=== PATIENT | male | born 1940 | race Caucasian/White ===

== ENCOUNTER → 2016-09-14 | Outpatient (CLI) | payer OTHER ==
[~2016-09-14] MED LIST: ACET-1311 PO; APR25 PO; ASPI81TA28 PO; BCTROWC EXT; CEPH500C PO; CEPH500C2 PO; CMD75 PO; CYAN3INJ IM; CYNI1000 INJ; FERR1TAB62 PO; FURO-85 PO; FURO40TA3 PO; GLC500 PO; GLYB3TAB3 PO; HYDR-4715 PO; LATA0.009 OPB; LATA0.5S OPB; LOSA100T65 PO; LPT/20 PO; METF-384 PO; METO-452 PO; METO25TA3 PO; NYST100098 TOP; NYST80OI TOP; OXGN; OXYC1CAP5 PO; WARF5TAB7 PO; ZOLP5TAB6 PO; [UNRECOGNIZED DRUG - CODE] PO; [UNRECOGNIZED DRUG - OTHER] PO; [UNRECOGNIZED DRUG - OTHER] TOP
[2016-09-14 16:48] LABS: BASO % 0.2 %; BASO ABS # 0.01 K/uL (0-0.2); COMPLETE YES; EOS % 3.9 %; HEMATOCRIT 36.8 % (42-52); IG% 0.2 %; LYMPH % 25.7 %; LYMPH ABS # 1.11 K/uL (1.2-3.4); MEAN CELL VOLUME 85.8 fL (80-100); MEAN CORPUSCULAR HEMOGLOBIN 27.7 pg (25-34); MEAN CORPUSCULAR HGB CONC 32.3 g/dl (32-36); MEAN PLATELET VOLUME 10.6 fL (7.4-10.4); MONO % 11.1 %; NEUT % 58.9 %; PLATELET COUNT 194 K/uL (130-400); RED BLOOD COUNT 4.29 M/uL (4.7-6.1); WHITE BLOOD COUNT 4.32 K/uL (4.8-10.8)
[2016-09-14 17:53] LABS: AST/SGOT 12 U/L (15-37); BLOOD UREA NITROGEN 27 mg/dl (7-18); BUN/CREATININE RATIO 24.2 (10-20); CALCIUM 9.1 mg/dl (8.5-10.1); CARBON DIOXIDE 28 mmol/L (21-32); CHLORIDE 107 mmol/L (98-107); CHOLESTEROL 100 mg/dl (0-200); GLUCOSE 67 mg/dl (70-99); POTASSIUM 4.4 mmol/L (3.5-5.1); SODIUM 143 mmol/L (136-145)
[2016-09-14 18:04] LABS: ALB/GLOB RATIO 0.8 (0.9-2); ALKALINE PHOSPHATASE 119 U/L (45-117); ALT/SGPT 23 U/L (12-78); CHOLESTEROL/HDL RATIO 2.5; FERRITIN 47.3 ng/ml (8.0-388.0); HDL CHOLESTEROL 40 mg/dl; LDL CHOLESTEROL CALCULATED 50 mg/dl; TOTAL IRON BINDING CAPACITY 270 mcg/dl (250-450); TRIGLYCERIDES 48 mg/dl (0-150); VERY LOW DENSITY LIPOPROT CALC 10 mg/dl
[2016-09-15 06:38] LABS: ESTIMATED AVERAGE GLUCOSE 140 mg/dl; HA1C FLAG Normal (Normal)
== END | disposition home or self-care (01) ==
LOC: C.LABBFT 12:20
PROVIDERS: ATTEND Internal Medicine
DX: E11.29 Type 2 diabetes mellitus with other diabetic kidney complication (principal); D64.9 Anemia, unspecified; I82.409 Acute embolism and thrombosis of unspecified deep veins of unspecified lower extremity

== ENCOUNTER → 2017-01-18 | Outpatient (CLI) | payer OTHER ==
[~2017-01-18] MED LIST changes: -APR25 PO; -FURO40TA3 PO; -METF-384 PO; -OXGN; -OXYC1CAP5 PO; -[UNRECOGNIZED DRUG - OTHER] PO; -[UNRECOGNIZED DRUG - OTHER] TOP
[2017-01-18 12:08] LABS: BASO % 0.4 %; BASO ABS # 0.02 K/uL (0-0.2); COMPLETE YES; EOS % 4.7 %; IG% 0.5 %; LYMPH % 21.8 %; LYMPH ABS # 1.22 K/uL (1.2-3.4); MEAN CELL VOLUME 91.1 fL (80-100); MEAN CORPUSCULAR HEMOGLOBIN 28.4 pg (25-34); MEAN CORPUSCULAR HGB CONC 31.1 g/dl (32-36); MEAN PLATELET VOLUME 10.5 fL (7.4-10.4); MONO % 10.4 %; NEUT % 62.2 %; PLATELET COUNT 187 K/uL (130-400); RED BLOOD COUNT 3.84 M/uL (4.7-6.1); WHITE BLOOD COUNT 5.59 K/uL (4.8-10.8)
[2017-01-18 12:28] LABS: ESTIMATED AVERAGE GLUCOSE 154 mg/dl; HA1C FLAG Normal (Normal)
[2017-01-18 13:40] LABS: BLOOD UREA NITROGEN 43 mg/dl (7-18); GLUCOSE 81 mg/dl (70-99)
[2017-01-18 13:41] LABS: ALT/SGPT 27 U/L (12-78); AST/SGOT 13 U/L (15-37); BUN/CREATININE RATIO 39.1 (10-20); CALCIUM 8.9 mg/dl (8.5-10.1); CARBON DIOXIDE 25 mmol/L (21-32); CHLORIDE 112 mmol/L (98-107); POTASSIUM 4.7 mmol/L (3.5-5.1); SODIUM 144 mmol/L (136-145)
[2017-01-18 13:52] LABS: ALB/GLOB RATIO 0.8 (0.9-2); ALKALINE PHOSPHATASE 95 U/L (45-117); CHOLESTEROL 108 mg/dl (0-200); CHOLESTEROL/HDL RATIO 2.6; HDL CHOLESTEROL 41 mg/dl; LDL CHOLESTEROL CALCULATED 56 mg/dl; PROSTATE SPECIFIC ANTIGEN 0.777 ng/ml (0.000-4.000); TRIGLYCERIDES 55 mg/dl (0-150); VERY LOW DENSITY LIPOPROT CALC 11 mg/dl
== END | disposition home or self-care (01) ==
LOC: C.LABBFT 09:11
PROVIDERS: ATTEND Internal Medicine
DX: E11.29 Type 2 diabetes mellitus with other diabetic kidney complication (principal); Z12.5 Encounter for screening for malignant neoplasm of prostate; I25.10 Atherosclerotic heart disease of native coronary artery without angina pectoris; I82.409 Acute embolism and thrombosis of unspecified deep veins of unspecified lower extremity

== ENCOUNTER 2017-02-24 21:41 | Emergency (ER) | payer OTHER ==
[~2017-02-24] VITALS: Ht 177.8 cm; Wt 145.4 kg
[~2017-02-24 21:41] MED LIST changes: -CEPH500C PO; -CYNI1000 INJ; -LATA0.5S OPB; -METO-452 PO
[2017-02-24 21:49] VITALS: TEMP 36.9; Ht 177.8 cm; Wt 145.4 kg
[2017-02-24] MEDS ORDERED: CEFTRIAXONE SOD INJ 1 GM ADDVIAL IV STA (22:11)
[2017-02-24] MEDS ORDERED: CYNI1000 INJ (22:25)
[2017-02-24] MEDS ORDERED: BCTROWC EXT (22:25)
[2017-02-24] MEDS ORDERED: LATA0.5S OPB (22:25)
[2017-02-24] MEDS ORDERED: METO-452 PO (22:27)
[2017-02-24 22:46] LABS: BASO % 0.2 %; BASO ABS # 0.01 K/uL (0-0.2); COMPLETE YES; HEMATOCRIT 35.4 % (42-52); IG% 0.4 %; LYMPH % 17.6 %; LYMPH ABS # 0.82 K/uL (1.2-3.4); MEAN CELL VOLUME 89.8 fL (80-100); MEAN CORPUSCULAR HEMOGLOBIN 28.9 pg (25-34); MEAN CORPUSCULAR HGB CONC 32.2 g/dl (32-36); MEAN PLATELET VOLUME 9.6 fL (7.4-10.4); MONO % 11.4 %; NEUT % 67.4 %; PLATELET COUNT 194 K/uL (130-400); RED BLOOD COUNT 3.94 M/uL (4.7-6.1); WHITE BLOOD COUNT 4.65 K/uL (4.8-10.8)
[2017-02-24 23:04] LABS: BLOOD UREA NITROGEN 27 mg/dl (7-18); BUN/CREATININE RATIO 27.3 (10-20); CALCIUM 8.8 mg/dl (8.5-10.1); CARBON DIOXIDE 31 mmol/L (21-32); CHLORIDE 106 mmol/L (98-107); GLUCOSE 184 mg/dl (70-99); SODIUM 143 mmol/L (136-145)
[2017-02-24 23:05] LABS: C-REACTIVE PROTEIN < 0.29 mg/dl (0-0.29)
--- NOTE | 2017-02-24 23:11 | EMERGENCY ROOM VISIT NOTE ---
ED Visit Note First contact with patient: 21:59 This Patient was discussed with the physician [employer], Taylor Anand PA-C. The pertinent historical and physical exam findings were confirmed. I agree with the studies ordered and with the interpretations of these studies. I agree with the disposition and care plan.
[2017-02-24] MEDS ORDERED: CEPH500C PO (23:22)
--- NOTE | 2017-02-24 23:23 | EMERGENCY ROOM VISIT NOTE ---
History First contact with patient: 21:59 Chief Complaint: INFECTION Stated Complaint: OOZING CELLULITIS ON LEFT LEG Nursing Triage Summary: Pt reports that today his left lower leg started seeping fluid. Hx of bilateral leg cellulitis that is currently being tx. Legs bandaged by home health aid. Legs unwrapped and left leg noted to be red and swollen with moist bandages. Several open areas to left leg. +4 pedal edema that is "worse than normal". Right leg also red and swollen and pedal edema. Single open area to right leg. History of Present Illness The patient is a 77 year old male who presents to the Emergency Room with complaints of oozing from the left leg. The patient states that he has had cellulitis in both of her legs on and off for several years. He states that the left leg began oozing around 3 PM this afternoon. The patient does state there has been slightly increased swelling for the past few days. He has been applying Bactroban ointment to the open areas. The patient states that his cellulitis is typically treated with Keflex. He denies any pain. He reports swelling in both of the legs which is chronic. He denies chest pain, shortness of breath, fevers, loss of appetite or vomiting. Review of Systems A complete 10 point review of systems was reviewed with the patient with pertinent positives and negatives as per history of present illness. All else were negative. Past Medical/Surgical History Medical Problems: (1) Benign hypertension (2) Bilateral pulmonary embolism (3) Chest pain, rule out acute myocardial infarction (4) Congestive heart failure (5) DIAB PAUL WO COMPL, TYPE II OR UNSPEC TYPE, NOT UNCNTRLD (6) MGUS (monoclonal gammopathy of unknown significance) (7) Morbid obesity Surgical Problems: (1) S/P CABG x 3 Family History FHx: heart disease Social History Smoking Status: Never Smoker Drug Use: none Marital Status: single Housing Status: lives alone Current/Historical Medications Scheduled Aspirin (Aspirin Ec), 81 MG PO DAILY Atorvastatin (Atorvastatin Calcium), 20 MG PO HS Cephalexin Monohydrate (Keflex), 500 MG PO QID Cyanocobalamin (Cyanocobalamin), Unknown Dose INJ MONTHLY Ferrous Sulfate (Ferrous Sulfate), 325 MG PO DAILY Furosemide (Lasix), 20-40 MG PO DAILY Glyburide (Glyburide Micronized), 9 MG PO QAM Glyburide Micronized (Glyburide Micronized), 6 MG PO QPM Hydralazine Hcl (Apresoline), 10 MG PO QID Latanoprost (Xalatan 0.005% Oph Nadia), 1 DROPS OPB HS Losartan Potassium (Cozaar), 100 MG PO DAILY Metformin HCl (Metformin HCl), 1,000 MG PO DAILY Metoprolol Succinate (Toprol Xl), 50 MG PO DAILY Mupirocin (Bactroban 2% Oint), 1 APPLN EXT BID Warfarin Sod (Coumadin), 7.5 MG PO Q2D Warfarin Sod (Jantoven), 5 MG PO Q2D Scheduled PRN Acetaminophen (Tylenol), 650 MG PO Q4 PRN for Pain Nystatin (Topical) (Nystatin), 1 APPLN TOP UD PRN for skin impairment Zolpidem Tartrate (Zolpidem Tartrate), 5 MG PO HS PRN for Sleep Allergies Coded Allergies: Mushroom (Verified Adverse Reaction, Unknown, diarrhea, 02/24/17) Physical Exam Vital Signs Date Time Temp Pulse Resp B/P (MAP) Pulse Ox O2 Delivery O2 Flow Rate FiO2 02/24/17 23:40 55 20 182/67 92 02/24/17 21:49 36.9 60 20 191/73 92 Room Air Physical Exam VITALS: Vitals are noted on the nurse's note and reviewed by myself. Vital signs stable. GENERAL: This is a 77-year-old male, in no acute distress, nondiaphoretic, well- developed well-nourished. HEART: Regular rate and rhythm without murmurs gallops or rubs. LUNGS: Clear to auscultation bilaterally without wheezes, rales or rhonchi. EXTREMITIES: 4+ edema to bilateral lower extremities. There are multiple small blisters on bilateral lower extremities. There are skin changes consistent with peripheral vascular disease bilaterally. There are a few small open areas to the left lower extremity which are oozing a serous fluid. There is mild erythema without warmth, induration or fluctuance. NEURO: Patient was alert and oriented to person place and time. Medical Decision & Procedures Laboratory Results 02/24/17 22:30 Red Blood Count 3.94, Mean Corpuscular Volume 89.8, Mean Corpuscular Hemoglobin 28.9, Mean Corpuscular Hemoglobin Concent 32.2, Mean Platelet Volume 9.6, Neutrophils (%) (Auto) 67.4, Lymphocytes (%) (Auto) 17.6, Monocytes (%) (Auto) 11.4, Eosinophils (%) (Auto) 3.0, Basophils (%) (Auto) 0.2, Neutrophils # (Auto ) 3.13, Lymphocytes # (Auto) 0.82, Monocytes # (Auto) 0.53, Eosinophils # (Auto ) 0.14, Basophils # (Auto) 0.01 02/24/17 22:30 Test 02/24/17 22:30 White Blood Count 4.65 K/uL (4.8-10.8) Red Blood Count 3.94 M/uL (4.7-6.1) Hemoglobin 11.4 g/dL (14.0-18.0) Hematocrit 35.4 % (42-52) Mean Corpuscular Volume 89.8 fL (80-100) Mean Corpuscular Hemoglobin 28.9 pg (25-34) Mean Corpuscular Hemoglobin Concent 32.2 g/dl (32-36) Platelet Count 194 K/uL (130-400) Mean Platelet Volume 9.6 fL (7.4-10.4) Neutrophils (%) (Auto) 67.4 % Lymphocytes (%) (Auto) 17.6 % Monocytes (%) (Auto) 11.4 % Eosinophils (%) (Auto) 3.0 % Basophils (%) (Auto) 0.2 % Neutrophils # (Auto) 3.13 K/uL (1.4-6.5) Lymphocytes # (Auto) 0.82 K/uL (1.2-3.4) Monocytes # (Auto) 0.53 K/uL (0.11-0.59) Eosinophils # (Auto) 0.14 K/uL (0-0.5) Basophils # (Auto) 0.01 K/uL (0-0.2) RDW Standard Deviation 48.3 fL (36.4-46.3) RDW Coefficient of Variation 14.8 % (11.5-14.5) Immature Granulocyte % (Auto) 0.4 % Immature Granulocyte # (Auto) 0.02 K/uL (0.00-0.02) Erythrocyte Sedimentation Rate 34 mm/hr (0-14) Anion Gap 6.0 mmol/L (3-11) Est Creatinine Clear Calc Drug Dose 87.8 ml/min Estimated GFR () 83.2 Estimated GFR (Non- 71.8 BUN/Creatinine Ratio 27.3 (10-20) Calcium Level 8.8 mg/dl (8.5-10.1) C-Reactive Protein < 0.29 mg/dl (0-0.29) Medications Administered Medications (Trade) Dose Ordered Sig/Eliot Route Start Time Stop Time Status Last Admin Dose Admin Ceftriaxone Sodium (Rocephin Inj) 1 gm NOW STAT IV 02/24/17 22:11 02/24/17 22:13 DC 02/24/17 22:39 1 GM Cephalexin Monohydrate (Keflex 500MG Home Pack) 1 homepack NOW ONCE PO 02/24/17 23:30 02/24/17 23:31 DC 02/24/17 23:30 1 HOMEPACK ED Course The patient was evaluated as above. Labs were drawn and IV access was obtained. Patient was medicated with 1 g Rocephin IV. Patient was reevaluated and findings were discussed. Discharge instructions were reviewed with the patient. The patient verbalized understanding of my assessment and treatment plan and was discharged home in good condition. Medical Decision Differential diagnosis includes cellulitis, abscess, DVT, superficial thrombosis , among others. The patient is a 77-year-old male who presents today complaining of oozing cellulitis of the left lower leg. Labs revealed no leukocytosis. CRP was not elevated. The patient may have a mild cellulitis. I feel that most of his symptoms are due to peripheral vascular disease. He will be placed on Keflex. He has a follow-up scheduled with his primary care provider in 3 days. He was urged to return here if his symptoms worsened in the meantime. The patient was independently evaluated by Dr. Angelo, ED attending physician, who agreed with my assessment and treatment plan. Based on the patient's presentation and work up, I feel the patient is stable for outpatient treatment. The patient was educated to return to the emergency department for any worsening of their current condition or new/concerning symptoms. He will follow up with his PCP. Medication reconciliation: I attest that I have personally reviewed the patient 's current medication list. Blood pressure screening: Patient was found to have an elevated blood pressure and was referred to their primary care provider for recheck and further treatment. Impression Primary Impression: Cellulitis of left lower extremity Departure Information Dispostion Home / Self-Care Condition GOOD Prescriptions Cephalexin Monohydrate (Keflex) 500 Mg Cap 500 MG PO QID for 10 Days, #40 CAP Prov: Taylor Anand .GANESH 02/24/17 Referrals Ronald Smith M.D. (PCP) Patient Instructions My [facility] Additional Instructions You were prescribed Keflex to be taken 4 times daily as prescribed. This is an antibiotic. All antibiotics have the potential to cause diarrhea. Stop this medication and contact a medical provider if you were to develop any significant adverse side effects including: wheezing, shortness of breath, passing out, vomiting, or a diffuse rash. Always take antibiotics as directed and COMPLETE the ENTIRE course regardless of the improvement of your symptoms. Keep your follow-up appointment on Monday as scheduled. Your blood pressure was high today. Make sure this is rechecked by your primary care provider. Return to the emergency department sooner for worsening redness, worsening pain , high fevers or any other new/concerning symptoms.
[2017-02-24] MEDS ORDERED: CEPHALEXIN 500MG HOME PACK 1 EA BTL PO ONE (23:30)
[2017-02-24 23:40] VITALS: BP 182/67; PULSE 55; O2SAT 92
== END 2017-02-24 23:40 | disposition home or self-care (01) ==
LOC: C.EDB 21:43
DX: L03.116 Cellulitis of left lower limb (principal); R60.0 Localized edema; I10 Essential (primary) hypertension; I50.9 Heart failure, unspecified; E11.9 Type 2 diabetes mellitus without complications; E66.2 Morbid (severe) obesity with alveolar hypoventilation; D47.2 Monoclonal gammopathy; Z86.711 Personal history of pulmonary embolism; Z95.1 Presence of aortocoronary bypass graft; Z79.82 Long term (current) use of aspirin; Z79.01 Long term (current) use of anticoagulants; Z79.84 Long term (current) use of oral hypoglycemic drugs

== ENCOUNTER → 2017-02-27 | Outpatient (CLI) | payer OTHER ==
[~2017-02-27] MED LIST changes: +CEPH500C PO; -CEPH500C2 PO; -CYAN3INJ IM; +CYNI1000 INJ; -LATA0.009 OPB; +LATA0.5S OPB; +METO-452 PO; -METO25TA3 PO; -NYST100098 TOP
[2017-02-27 17:37] LABS: PROTHROMBIN TIME (PATIENT) 22.3 SECONDS (9.0-12.0)
== END | disposition home or self-care (01) ==
LOC: C.LABBFT 15:31
PROVIDERS: ATTEND Internal Medicine
DX: I82.409 Acute embolism and thrombosis of unspecified deep veins of unspecified lower extremity (principal)

== ENCOUNTER → 2017-06-08 | Outpatient (CLI) | payer OTHER ==
[~2017-06-08] MED LIST changes: -CEPH500C PO; -FERR1TAB62 PO; +FERR325T PO; -METO-452 PO; +METO1TAB66 PO
[2017-06-08 17:23] LABS: BASO % 0.2 %; BASO ABS # 0.01 K/uL (0-0.2); COMPLETE YES; EOS % 2.7 %; HEMATOCRIT 30.1 % (42-52); IG% 0.7 %; LYMPH % 19.6 %; LYMPH ABS # 1.07 K/uL (1.2-3.4); MEAN CELL VOLUME 90.4 fL (80-100); MEAN CORPUSCULAR HEMOGLOBIN 28.5 pg (25-34); MEAN CORPUSCULAR HGB CONC 31.6 g/dl (32-36); MEAN PLATELET VOLUME 9.7 fL (7.4-10.4); MONO % 10.2 %; NEUT % 66.6 %; PLATELET COUNT 229 K/uL (130-400); RED BLOOD COUNT 3.33 M/uL (4.7-6.1); WHITE BLOOD COUNT 5.47 K/uL (4.8-10.8)
[2017-06-08 17:55] LABS: ALT/SGPT 26 U/L (12-78); AST/SGOT 14 U/L (15-37); BLOOD UREA NITROGEN 35 mg/dl (7-18); BUN/CREATININE RATIO 29.3 (10-20); CALCIUM 8.9 mg/dl (8.5-10.1); CARBON DIOXIDE 24 mmol/L (21-32); CHLORIDE 110 mmol/L (98-107); GLUCOSE 122 mg/dl (70-99); POTASSIUM 4.5 mmol/L (3.5-5.1); SODIUM 142 mmol/L (136-145)
[2017-06-08 17:58] LABS: ALB/GLOB RATIO 0.7 (0.9-2); ALKALINE PHOSPHATASE 104 U/L (45-117)
== END | disposition home or self-care (01) ==
LOC: C.LABBFT 13:51
PROVIDERS: ATTEND Internal Medicine
DX: I25.10 Atherosclerotic heart disease of native coronary artery without angina pectoris (principal); E11.29 Type 2 diabetes mellitus with other diabetic kidney complication

== ENCOUNTER → 2017-06-28 | Outpatient (CLI) | payer OTHER ==
[2017-06-28 17:27] LABS: BASO % 0.3 %; BASO ABS # 0.02 K/uL (0-0.2); COMPLETE YES; EOS % 3.4 %; HEMATOCRIT 32.2 % (42-52); IG% 0.5 %; LYMPH % 20.1 %; LYMPH ABS # 1.24 K/uL (1.2-3.4); MEAN CELL VOLUME 91.2 fL (80-100); MEAN CORPUSCULAR HEMOGLOBIN 29.7 pg (25-34); MEAN CORPUSCULAR HGB CONC 32.6 g/dl (32-36); MEAN PLATELET VOLUME 10.4 fL (7.4-10.4); MONO % 8.1 %; NEUT % 67.6 %; PLATELET COUNT 201 K/uL (130-400); RED BLOOD COUNT 3.53 M/uL (4.7-6.1); WHITE BLOOD COUNT 6.17 K/uL (4.8-10.8)
[2017-06-28 17:41] LABS: BLOOD UREA NITROGEN 43 mg/dl (7-18); BUN/CREATININE RATIO 28.2 (10-20); CALCIUM 8.7 mg/dl (8.5-10.1); CARBON DIOXIDE 25 mmol/L (21-32); CHLORIDE 106 mmol/L (98-107); CREATININE 1.52 mg/dl (0.60-1.40); GLUCOSE 263 mg/dl (70-99); POTASSIUM 5.1 mmol/L (3.5-5.1); SODIUM 139 mmol/L (136-145)
== END ==
LOC: C.LABBFT 15:35 → EDSTATUS 16:01
PROVIDERS: ATTEND Internal Medicine
DX: N17.9 Acute kidney failure, unspecified (principal)

== ENCOUNTER 2017-09-20 15:29 | Emergency (ER) | payer OTHER ==
[~2017-09-20] VITALS: Ht 179.1 cm; Wt 145.9 kg
[~2017-09-20 15:29] MED LIST changes: +FERR1TAB62 PO; -FERR325T PO; -LPT/20 PO; +LPT20 PO; +METO-452 PO; -METO1TAB66 PO
[2017-09-20 15:35] VITALS: Ht 179.1 cm; Wt 145.9 kg
--- NOTE | 2017-09-20 16:18 | EMERGENCY ROOM VISIT NOTE ---
History Report prepared by Vish: Lin Whiteside Under the Supervision of: Dr. Eddie Givens M.D. First contact with patient: 16:05 Chief Complaint: ARM PAIN Stated Complaint: ACHE IN LEFT ARM,PT HAS HAD BYPASS SURGERY History of Present Illness The patient is a 77 year old male who presents to the Emergency Room with complaints of intermittent left arm aching beginning this morning. The patient states movement does not worsen or relieve his pain. The patient reports he recently had bypass surgery. He denies any chest pain, fever, cough or congestion. He reports some shortness of breath with walking around which is chronic for him. The patient is on Coumadin for a history of PEs. The patient notes he was hospitalized in [place] 6 months ago for a cellulitis on his leg. The patient goes to [facility] for his chronic lymph edema. Source of History: patient Onset: this morning Position: arm (left) Quality: ache Timing: intermittent Modifying Factors (Worsening): other (none) Associated Symptoms: + SOB, No fevers, No cough, No chest pain Review of Systems See HPI for pertinent positives and negatives. A total of ten systems were reviewed and were otherwise negative. Past Medical & Surgical Medical Problems: (1) Benign hypertension (2) Bilateral pulmonary embolism (3) Chest pain, rule out acute myocardial infarction (4) Congestive heart failure (5) DIAB PAUL WO COMPL, TYPE II OR UNSPEC TYPE, NOT UNCNTRLD (6) MGUS (monoclonal gammopathy of unknown significance) (7) Morbid obesity Surgical Problems: (1) S/P CABG x 3 Family History FHx: heart disease Social History Smoking Status: Never Smoker Drug Use: none Marital Status: single Housing Status: lives alone Current/Historical Medications Scheduled Aspirin (Aspirin Ec), 81 MG PO QPM Atorvastatin (Lipitor), 20 MG PO HS Cyanocobalamin (Cyanocobalamin), Unknown Dose INJ MONTHLY Furosemide (Lasix), 40-80 MG PO DAILY Glyburide (Glyburide Micronized), 9 MG PO QAM Glyburide Micronized (Glyburide Micronized), 6 MG PO QPM Home O2 Therapy (Oxygen), 2 LITERS NA HS Hydralazine Hcl (Apresoline), 25 MG PO QID Latanoprost (Xalatan 0.005% Oph Nadia), 1 DROPS OPB HS Losartan Potassium (Cozaar), 100 MG PO DAILY Metformin Hcl (Glucophage), 1,000 MG PO DAILY Metoprolol Succinate (Toprol Xl), 50 MG PO DAILY Oxycodone Hcl (Oxycodone Hcl), 5-10 MG PO Q6H Warfarin Sod (Jantoven), 5 MG PO QPM [ferex iron supp], 150 MG PO QPM Scheduled PRN Acetaminophen (Tylenol), 650 MG PO Q4 PRN for Pain Nystatin (Topical) (Nystatin), 1 APPLN TOP UD PRN for skin impairment Zolpidem Tartrate (Zolpidem Tartrate), 5 MG PO HS PRN for Sleep [triam aveeno oint], 1 APPL TOP DAILY PRN for DRYNESS Allergies Coded Allergies: Mushroom (Verified Adverse Reaction, Unknown, diarrhea, 09/20/17) Physical Exam Vital Signs Date Time Temp Pulse Resp B/P (MAP) Pulse Ox O2 Delivery O2 Flow Rate FiO2 09/20/17 18:21 36.7 57 18 171/79 95 09/20/17 18:00 57 18 171/79 95 Room Air 09/20/17 17:30 65 23 171/74 95 Room Air 09/20/17 16:24 98 Room Air 09/20/17 16:20 72 09/20/17 15:35 36.7 71 18 231/134 93 Room Air Physical Exam GENERAL: Awake, alert, well-appearing, in no distress HENT: Normocephalic, atraumatic. Oropharynx unremarkable. Dry MM. EYES: Normal conjunctiva. Sclera non-icteric. NECK: Supple. No nuchal rigidity. FROM. No JVD. RESPIRATORY: Clear to auscultation. CARDIAC: Regular rate, normal rhythm. Extremities warm and well perfused. Pulses equal. ABDOMEN: Soft, non-distended. No tenderness to palpation. No rebound or guarding. No masses. RECTAL: Deferred. MUSCULOSKELETAL: Chest examination reveals no tenderness. The back is symmetrical on inspection without obvious abnormality. There is no CVA tenderness to palpation. No joint edema. Full ROM of left upper extremities, no tenderness to palpation. LOWER EXTREMITIES: 2 + lower extremity edema, symmetric on both sides. Calves are equal size bilaterally and non-tender. . No discoloration. NEURO: Normal sensorium. No sensory or motor deficits noted. SKIN: No rash or jaundice noted. Medical Decision & Procedures ER Provider Diagnostic Interpretation: Radiology results as stated below per my review and radiologist interpretation: CHEST ONE VIEW PORTABLE FINDINGS: There are median sternotomy wires and clips from bypass grafting. Exam is compromised by portable technique and body habitus with suboptimal penetration. Moderate enlargement of the cardiac silhouette is noted. There is no evidence for overt pulmonary edema. There is pulmonary vascular congestion. Apparent hazy left lower lung opacity is noted. Artifact is favored. IMPRESSION: Moderate cardiomegaly with pulmonary vascular congestion. No evidence for overt pulmonary edema. Electronically signed by: Randy Staples M.D. Laboratory Results 09/20/17 16:22 Red Blood Count 3.57, Mean Corpuscular Volume 91.3, Mean Corpuscular Hemoglobin 28.6, Mean Corpuscular Hemoglobin Concent 31.3, Mean Platelet Volume 10.0, Neutrophils (%) (Auto) 69.8, Lymphocytes (%) (Auto) 18.2, Monocytes (%) (Auto) 7.5, Eosinophils (%) (Auto) 3.7, Basophils (%) (Auto) 0.4, Neutrophils # (Auto) 3.73, Lymphocytes # (Auto) 0.97, Monocytes # (Auto) 0.40, Eosinophils # (Auto) 0.20, Basophils # (Auto) 0.02 09/20/17 16:22 Test 09/20/17 16:22 White Blood Count 5.34 K/uL (4.8-10.8) Red Blood Count 3.57 M/uL (4.7-6.1) Hemoglobin 10.2 g/dL (14.0-18.0) Hematocrit 32.6 % (42-52) Mean Corpuscular Volume 91.3 fL (80-100) Mean Corpuscular Hemoglobin 28.6 pg (25-34) Mean Corpuscular Hemoglobin Concent 31.3 g/dl (32-36) Platelet Count 155 K/uL (130-400) Mean Platelet Volume 10.0 fL (7.4-10.4) Neutrophils (%) (Auto) 69.8 % Lymphocytes (%) (Auto) 18.2 % Monocytes (%) (Auto) 7.5 % Eosinophils (%) (Auto) 3.7 % Basophils (%) (Auto) 0.4 % Neutrophils # (Auto) 3.73 K/uL (1.4-6.5) Lymphocytes # (Auto) 0.97 K/uL (1.2-3.4) Monocytes # (Auto) 0.40 K/uL (0.11-0.59) Eosinophils # (Auto) 0.20 K/uL (0-0.5) Basophils # (Auto) 0.02 K/uL (0-0.2) RDW Standard Deviation 49.2 fL (36.4-46.3) RDW Coefficient of Variation 14.7 % (11.5-14.5) Immature Granulocyte % (Auto) 0.4 % Immature Granulocyte # (Auto) 0.02 K/uL (0.00-0.02) Prothrombin Time 17.7 SECONDS (9.0-12.0) Prothromb Time International Ratio 1.7 (0.9-1.1) Anion Gap 2.0 mmol/L (3-11) Est Creatinine Clear Calc Drug Dose 73.2 ml/min Estimated GFR () 66.1 Estimated GFR (Non- 57.0 BUN/Creatinine Ratio 27.4 (10-20) Calcium Level 8.8 mg/dl (8.5-10.1) Total Bilirubin 1.2 mg/dl (0.2-1) Direct Bilirubin 0.3 mg/dl (0-0.2) Aspartate Amino Transf (AST/SGOT) 14 U/L (15-37) Alanine Aminotransferase (ALT/SGPT) 25 U/L (12-78) Alkaline Phosphatase 99 U/L (45-117) Troponin I 0.024 ng/ml (0-0.045) Pro-B-Type Natriuretic Peptide 1252 pg/ml (0-1800) Total Protein 7.7 gm/dl (6.4-8.2) Albumin 3.4 gm/dl (3.4-5.0) Lipase 149 U/L (73-393) Laboratory results reviewed by me ECG Indication: other (arm ache) Rate (beats per minute): 135 Rhythm: sinus tachycardia Findings: RBBB, no acute ischemic change, other (poor baseline artifact, normal axis) Comparison ECG Date: 04/19/16 Change: no significant change Change: REPEAT EKG: normal sinus, RBBB, 63 bpm, normal axis, no acute ischemia, similar to prior ED Course 1606: The patient was evaluated in room B10. A complete history and physical exam was performed. 1808: I updated the patient on his test results. He is ready to go home. 7: I reevaluated the patient. Discussed results and discharge instructions: He verbalized understanding and agreement. The patient is ready for discharge. Medical Decision I reviewed the patient's past medical history, medications, and the nursing notes as described above. Differential diagnosis: Etiologies such as cardiac ischemia, aortic dissection, pulmonary embolism, pneumonia, pneumothorax, musculoskeletal, infections, pericarditis, myocarditis , esophageal rupture, gastrointestinal, as well as others were entertained. The patient is a 77-year-old gentleman with a past medical history of CAD status post bypass presents emergency Department with constant left shoulder and arm pain that his been persistent since this morning in the setting of chronic dyspnea on exertion per hpi. Arrival the patient is well-appearing, in no acute distress, afebrile with stable vital signs. EKG unremarkable and Trop negative in the setting of constant sx greater than 6 hours prior to arrival. ACS not likely. Plan for pcp f/u. Findings and plan for follow-up reviewed with patient. Patient agreeable and d/c'd per discharge instructions. Medication Reconcilliation Current Medication List: was personally reviewed by me Blood Pressure Screening Patient's blood pressure: Elevated blood pressure Blood pressure disposition: Elevated BP felt to be situational Impression Primary Impression: Shoulder pain, left Scribe Attestation The scribe's documentation has been prepared under my direction and personally reviewed by me in its entirety. I confirm that the note above accurately reflects all work, treatment, procedures, and medical decision making performed by me. Departure Information Dispostion Home / Self-Care Referrals Ronald Smith M.D. (PCP) Forms HOME CARE DOCUMENTATION FORM, IMPORTANT VISIT INFORMATION Patient Instructions ED Chest Pain Atypical Unkn Cause, ED Shoulder Pain [facility], [facility] Additional Instructions Please follow up with your primary care physician in the next 1-3 days for re- evaluation. The cause of your shoulder/arm pain are unclear at this time but are unlikely to be related to your heart. Otherwise, your exam, EKG, chest xray, and lab results did not show signs of an emergent condition at this time. Acetaminophen for pain as needed. Return to the emergency department for worsening symptoms as described in the accompanying instructions.
[2017-09-20 16:24] VITALS: O2SAT 98
[2017-09-20 16:30] LABS: BASO % 0.4 %; BASO ABS # 0.02 K/uL (0-0.2); EOS % 3.7 %; HEMATOCRIT 32.6 % (42-52); HEMOGLOBIN 10.2 g/dL (14.0-18.0); IG# 0.02 K/uL (0.00-0.02); LYMPH % 18.2 %; LYMPH ABS # 0.97 K/uL (1.2-3.4); MEAN CELL VOLUME 91.3 fL (80-100); MEAN CORPUSCULAR HEMOGLOBIN 28.6 pg (25-34); MEAN CORPUSCULAR HGB CONC 31.3 g/dl (32-36); MONO % 7.5 %; NEUT % 69.8 %; NEUT ABS # 3.73 K/uL (1.4-6.5); PLATELET COUNT 155 K/uL (130-400); RED CELL DISTRIBUTION WIDTH CV 14.7 % (11.5-14.5); RED CELL DISTRIBUTION WIDTH SD 49.2 fL (36.4-46.3); WHITE BLOOD COUNT 5.34 K/uL (4.8-10.8)
[2017-09-20 16:39] LABS: INR 1.7 (0.9-1.1)
[2017-09-20] MEDS ORDERED: FURO40TA3 PO (16:51)
[2017-09-20 16:52] LABS: ALBUMIN 3.4 gm/dl (3.4-5.0); CALCIUM 8.8 mg/dl (8.5-10.1); CREATININE 1.21 mg/dl (0.60-1.40)
--- NOTE | 2017-09-20 16:52 | DIAGNOSTIC IMAGING REPORT ---
CHEST ONE VIEW PORTABLE CLINICAL HISTORY: Chest pain. COMPARISON STUDY: Chest radiograph August 16, 2016. FINDINGS: There are median sternotomy wires and clips from bypass grafting. Exam is compromised by portable technique and body habitus with suboptimal penetration. Moderate enlargement of the cardiac silhouette is noted. There is no evidence for overt pulmonary edema. There is pulmonary vascular congestion. Apparent hazy left lower lung opacity is noted. Artifact is favored. IMPRESSION: Moderate cardiomegaly with pulmonary vascular congestion. No evidence for overt pulmonary edema. Electronically signed by: Randy Staples M.D. 09/20/2017 4:50 PM Dictated Date/Time: 09/20/2017 4:49 PM
[2017-09-20] MEDS ORDERED: APR25 PO (16:54)
[2017-09-20 16:58] LABS: TOTAL PROTEIN 7.7 gm/dl (6.4-8.2)
[2017-09-20] MEDS ORDERED: [UNRECOGNIZED DRUG - OTHER] PO (17:01)
[2017-09-20] MEDS ORDERED: METF-384 PO (17:04)
[2017-09-20] MEDS ORDERED: OXYC1CAP5 PO (17:09)
[2017-09-20] MEDS ORDERED: OXGN (17:10)
[2017-09-20] MEDS ORDERED: [UNRECOGNIZED DRUG - OTHER] TOP (17:14)
[2017-09-20 18:21] VITALS: BP 171/79; PULSE 57; TEMP 36.7; O2SAT 95
== END 2017-09-20 18:15 | disposition home or self-care (01) ==
LOC: C.EDB 15:31
DX: M25.512 Pain in left shoulder (principal); I45.10 Unspecified right bundle-branch block; I10 Essential (primary) hypertension; E11.9 Type 2 diabetes mellitus without complications; I51.9 Heart disease, unspecified; Z86.711 Personal history of pulmonary embolism; Z95.1 Presence of aortocoronary bypass graft; Z79.82 Long term (current) use of aspirin; Z79.84 Long term (current) use of oral hypoglycemic drugs; Z79.899 Other long term (current) drug therapy; Z82.49 Family history of ischemic heart disease and other diseases of the circulatory system; Z91.018 Allergy to other foods

== ENCOUNTER → 2017-11-06 | Outpatient (CLI) | payer OTHER ==
[~2017-11-06] MED LIST changes: +APR25 PO; -BCTROWC EXT; -CMD75 PO; -FERR1TAB62 PO; -FURO-85 PO; +FURO40TA3 PO; -GLC500 PO; -HYDR-4715 PO; +METF-384 PO; +OXGN; +OXYC1CAP5 PO; +[UNRECOGNIZED DRUG - OTHER] PO; +[UNRECOGNIZED DRUG - OTHER] TOP
[2017-11-06 17:42] LABS: BASO % 0.4 %; BASO ABS # 0.02 K/uL (0-0.2); EOS % 5.8 %; EOS ABS # 0.32 K/uL (0-0.5); HEMATOCRIT 34.4 % (42-52); HEMOGLOBIN 11.2 g/dL (14.0-18.0); IG# 0.01 K/uL (0.00-0.02); LYMPH % 17.8 %; LYMPH ABS # 0.98 K/uL (1.2-3.4); MEAN CELL VOLUME 89.1 fL (80-100); MEAN CORPUSCULAR HGB CONC 32.6 g/dl (32-36); MEAN PLATELET VOLUME 10.3 fL (7.4-10.4); MONO % 10.3 %; MONO ABS # 0.57 K/uL (0.11-0.59); NEUT % 65.5 %; NEUT ABS # 3.62 K/uL (1.4-6.5); PLATELET COUNT 166 K/uL (130-400); RED CELL DISTRIBUTION WIDTH CV 14.8 % (11.5-14.5); RED CELL DISTRIBUTION WIDTH SD 48.4 fL (36.4-46.3); WHITE BLOOD COUNT 5.52 K/uL (4.8-10.8)
[2017-11-06 18:07] LABS: CREATININE RANDOM URINE 61.9 mg/dl
[2017-11-06 18:29] LABS: ALBUMIN 3.5 gm/dl (3.4-5.0); ALT/SGPT 21 U/L (12-78); AST/SGOT 12 U/L (15-37); BLOOD UREA NITROGEN 58 mg/dl (7-18); CARBON DIOXIDE 26 mmol/L (21-32); CREATININE 1.36 mg/dl (0.60-1.40); GLUCOSE 213 mg/dl (70-99); POTASSIUM 5.1 mmol/L (3.5-5.1); SODIUM 138 mmol/L (136-145)
[2017-11-06 18:32] LABS: ALKALINE PHOSPHATASE 94 U/L (45-117); CHOLESTEROL 114 mg/dl (0-200); LDL CHOLESTEROL CALCULATED 47 mg/dl; TOTAL PROTEIN 7.9 gm/dl (6.4-8.2)
[2017-11-07 06:45] LABS: HEMOGLOBIN A1C 7.3 % (4.5-5.6)
== END | disposition home or self-care (01) ==
LOC: C.LABBFT 14:12
PROVIDERS: ATTEND Internal Medicine
DX: E11.29 Type 2 diabetes mellitus with other diabetic kidney complication (principal); I25.10 Atherosclerotic heart disease of native coronary artery without angina pectoris

== ENCOUNTER 2017-12-10 09:54 | Emergency (ER) | payer OTHER ==
[~2017-12-10] VITALS: Ht 177.8 cm; Wt 146.6 kg
[2017-12-10 09:56] VITALS: TEMP 36.6; Ht 177.8 cm; Wt 146.6 kg
--- NOTE | 2017-12-10 10:17 | EMERGENCY ROOM VISIT NOTE ---
History Report prepared by Vish: Srinath Roldan Under the Supervision of: Dr. Sancho Hu M.D. First contact with patient: 10:00 Chief Complaint: LEG PAIN,LEG INJURY Stated Complaint: LEG PAIN History of Present Illness The patient is a 77 year old male who presents to the Emergency Room with complaints of constant cellulitis on his right leg beginning 4 days ago. The patient states that he first noticed that his leg was bleeding during physical therapy four days ago for his edema. He notes that his symptoms feel like the "skin has been rubbed off and is burning." He also complains of leg edema but notes that it is chronic. He reports that his leg swelling is about the same as it usually is. He denies any fever, chill, nausea, vomiting, CP, SOB, and headache. The patient states that he has a history of diabetes, cellulitis, MGUS and is on Coumadin for blood clots in his lungs. He notes that his cellulitis is typically on his left leg but has appeared on both legs in the past. He denies having any history of blood clots in his legs. Source of History: patient Onset: 4 days ago Position: leg (right) Quality: burning, other ("skin rubbed off" and bleeding) Timing: constant Associated Symptoms: No fevers, No chills, No headache, No chest pain, No SOB, No nausea, No vomiting Note: The patient also complains of chronic leg edema. Review of Systems See HPI for pertinent positives & negatives. A total of 10 systems reviewed and were otherwise negative. Past Medical & Surgical Medical Problems: (1) Benign hypertension (2) Bilateral pulmonary embolism (3) Chest pain, rule out acute myocardial infarction (4) Congestive heart failure (5) DIAB PAUL WO COMPL, TYPE II OR UNSPEC TYPE, NOT UNCNTRLD (6) Diabetes (7) MGUS (monoclonal gammopathy of unknown significance) (8) Morbid obesity (9) Pulmonary embolism Surgical Problems: (1) S/P CABG x 3 Old medical records were reviewed. Nurse's notes were reviewed and I agree with. Family History FH: heart disease FHx: cancer FHx: heart disease Hypertension Social History Smoking Status: Never Smoker Drug Use: none Marital Status: single Housing Status: lives alone Occupation Status: retired Current/Historical Medications Scheduled Aspirin (Aspirin Ec), 81 MG PO QPM Atorvastatin (Lipitor), 1 TAB PO DAILY Cephalexin Monohydrate (Keflex), 500 MG PO TID Cyanocobalamin (Cyanocobalamin), Unknown Dose INJ MONTHLY Dulaglutide (Trulicity), 1 DOSE INJ WK Furosemide (Lasix), 40-80 MG PO DAILY Glyburide (Glyburide Micronized), 9 MG PO QAM Glyburide Micronized (Glyburide Micronized), 6 MG PO QPM Home O2 Therapy (Oxygen), 2 LITERS NA HS Hydralazine Hcl (Apresoline), 25 MG PO QID Latanoprost (Xalatan 0.005% Oph Nadia), 1 DROPS OPB HS Losartan Potassium (Cozaar), 100 MG PO DAILY Metformin Hcl (Glucophage), 1,000 MG PO DAILY Metoprolol Succinate (Toprol Xl), 1 TAB PO DAILY Oxycodone Hcl (Oxycodone Hcl), 5-10 MG PO Q6H Warfarin Sodium (Warfarin Sodium), 1 TAB PO DAILYUD [ferex iron supp], 150 MG PO QPM Scheduled PRN Acetaminophen (Tylenol), 650 MG PO Q4 PRN for Pain Nystatin (Topical) (Nystatin), 1 APPLN TOP UD PRN for skin impairment Zolpidem Tartrate (Zolpidem Tartrate), 5 MG PO HS PRN for Sleep [triam aveeno oint], 1 APPL TOP DAILY PRN for DRYNESS Allergies Coded Allergies: Mushroom (Verified Adverse Reaction, Unknown, diarrhea, 12/10/17) Physical Exam Vital Signs Date Time Temp Pulse Resp B/P (MAP) Pulse Ox O2 Delivery O2 Flow Rate FiO2 12/10/17 12:08 56 18 173/65 96 Room Air 12/10/17 11:05 57 18 172/81 95 Room Air 12/10/17 09:56 36.6 66 20 205/78 97 Room Air Physical Exam General: Chronically ill appearing but not acutely ill older male in no acute distress. HEENT: Normal cephalic atraumatic. Pupils are equal round and reactive to light. Extraocular movements are intact. Oropharynx is pink with moist mucous membranes. No swelling of the mouth lips or tongue. Neck: Supple with a midline trachea. No meningeal signs or stiffness, no JVD or bruits. No Stridor. Chest: Clear to auscultation bilaterally. No wheezes or rhonchi. No increased work of breathing. Heart: regular rate and rhythm. Abdomen: Soft nontender, nondistended without rebound guarding or rigidity. Extremities: No cyanosis clubbing. No calf tenderness or assymetry. Bilateral lower extremity edema which he says is unchanged, chronic vascular skin changes bilaterally, area of concern in right medial calf has a small skin abrasion, no redness or warmth. Spine/Back. Non tender to palpation. No CVA tenderness Skin: Good turgor without rashes. Neurologic exam: Cranial nerves two through 12 are intact. Motor and sensation are intact and symmetrical throughout. Medical Decision & Procedures ER Provider Diagnostic Interpretation: Radiology results as stated below per my review and radiologist interpretation: SINGLE VIEW CHEST FINDINGS: An AP, portable, upright chest radiograph is compared to study dated 09/20/[address] dated 04/20/2016. The examination is degraded by portable technique, large body habitus, and patient rotation. The patient is status post midline sternotomy. The heart is enlarged and there is atherosclerotic calcification of the thoracic aorta. There is prominence of the central pulmonary vessels. There is chronic elevation of right hemidiaphragm and bibasilar atelectasis. Chronic interstitial thickening is similar to previous. No airspace consolidation or large pleural effusion is identified. No pneumothorax is seen. The skeletal structures are osteopenic. The bony thorax is grossly intact. IMPRESSION: 1. Cardiomegaly with prominence of the central pulmonary vasculature. Correlate clinically for evidence of mild congestive failure. 2. No airspace consolidation or large pleural effusion is identified. Electronically signed by: Toribio Hastings M.D. 12/10/2017 10:40 AM ULTRASOUND RIGHT LOWER EXTREMITY VENOUS FINDINGS: There is no sonographic evidence of deep venous thrombosis identified in the right lower extremity. The common femoral, superficial femoral, and popliteal veins are patent and normally compressible. The greater saphenous vein and the profunda femoris vein at the junction with the common femoral vein are clear. The visualized calf veins are patent. IMPRESSION: There is no sonographic evidence of deep venous thrombosis identified in the right lower extremity. Electronically signed by: Toribio Hastings M.D. 12/10/2017 12:02 PM Laboratory Results 12/10/17 10:50 Red Blood Count 3.70, Mean Corpuscular Volume 87.8, Mean Corpuscular Hemoglobin 28.9, Mean Corpuscular Hemoglobin Concent 32.9, Mean Platelet Volume 8.5, Neutrophils (%) (Auto) 61.5, Lymphocytes (%) (Auto) 21.4, Monocytes (%) (Auto) 11.2, Eosinophils (%) (Auto) 5.1, Basophils (%) (Auto) 0.4, Neutrophils # (Auto ) 3.13, Lymphocytes # (Auto) 1.09, Monocytes # (Auto) 0.57, Eosinophils # (Auto ) 0.26, Basophils # (Auto) 0.02 12/10/17 10:50 Test 12/10/17 10:50 12/10/17 10:57 White Blood Count 5.09 K/uL (4.8-10.8) Red Blood Count 3.70 M/uL (4.7-6.1) Hemoglobin 10.7 g/dL (14.0-18.0) Hematocrit 32.5 % (42-52) Mean Corpuscular Volume 87.8 fL (80-100) Mean Corpuscular Hemoglobin 28.9 pg (25-34) Mean Corpuscular Hemoglobin Concent 32.9 g/dl (32-36) Platelet Count 147 K/uL (130-400) Mean Platelet Volume 8.5 fL (7.4-10.4) Neutrophils (%) (Auto) 61.5 % Lymphocytes (%) (Auto) 21.4 % Monocytes (%) (Auto) 11.2 % Eosinophils (%) (Auto) 5.1 % Basophils (%) (Auto) 0.4 % Neutrophils # (Auto) 3.13 K/uL (1.4-6.5) Lymphocytes # (Auto) 1.09 K/uL (1.2-3.4) Monocytes # (Auto) 0.57 K/uL (0.11-0.59) Eosinophils # (Auto) 0.26 K/uL (0-0.5) Basophils # (Auto) 0.02 K/uL (0-0.2) RDW Standard Deviation 45.1 fL (36.4-46.3) RDW Coefficient of Variation 14.1 % (11.5-14.5) Immature Granulocyte % (Auto) 0.4 % Immature Granulocyte # (Auto) 0.02 K/uL (0.00-0.02) Prothrombin Time 20.7 SECONDS (9.0-12.0) Prothromb Time International Ratio 2.0 (0.9-1.1) Activated Partial Thromboplast Time 32.0 SECONDS (21.0-31.0) Partial Thromboplastin Ratio 1.2 Anion Gap 7.0 mmol/L (3-11) Est Creatinine Clear Calc Drug Dose 80.2 ml/min Estimated GFR () 74.1 Estimated GFR (Non- 64.0 BUN/Creatinine Ratio 33.9 (10-20) Calcium Level 8.9 mg/dl (8.5-10.1) Bedside Troponin I < 0.030 ng/ml (0-0.045) Laboratory studies as stated above per my review. Medications Administered Medications (Trade) Dose Ordered Sig/Eliot Route Start Time Stop Time Status Last Admin Dose Admin Cephalexin Monohydrate (Keflex 500MG Home Pack) 1 homepack NOW ONCE PO 12/10/17 12:30 12/10/17 12:31 DC 12/10/17 12:30 1 HOMEPACK ECG Per My Interpretation Indication: other (lower extremity edema) Rate (beats per minute): 55 Rhythm: sinus bradycardia Findings: RBBB, no acute ischemic change Comparison ECG Date: 09/20/2017 Change: no significant change ED Course 1001: Past medical records reviewed. The patient was evaluated in room B4, and a complete history and physical examination were performed. 1205: I reevaluated and update the patient. He is coming back from US and looks comfortable. 1222: Upon reevaluation, the patient is stable. I discussed the results and treatment plan with him. He verbalized agreement of the treatment plan. The patient was discharged home. Medical Decision Differential diagnoses include: CHF, cellulitis, DVT, anticoagulation use, and electrolyte/metabolic abnormalities. This patient comes in as described above. He has chronic swelling in his legs he was concerned he could begin infection as there is a small skin tear in the right leg. On exam there is a skin tear present but there is no redness or warmth he has no fever or chills he feels that his legs are unchanged and he does wear compression stockings. He has had no increase in swelling or pain he has had no systemic complaints of chest pain shortness of breath or fever or chills or flulike symptoms. IV access established and blood work was obtained he is no white count or fever to suggest infection. He has no significant acute anemia. He is nothing to suggest acute cardiac disease. Chest x-ray was clear and does not show any definite congestive heart failure. Ultrasound of his leg was unremarkable. At this point, I do not think he has a significant cellulitis but he is certainly at risk he has a small skin tear, I will put him on Keflex for the possibility of very early cellulitis and he said he just wanted to nip it in the bud. I put him on Keflex 500 mg 3 times daily. First dose was given here as well as prescription. He was encouraged to apply bacitracin and sterile dressing keep elevated follow-up with his doctor for recheck in 1-2 days and return if: increasing pain, redness or warmth, worsening of symptoms, any new problems or concerns. He is happy to plan and discharged to home. Blood Pressure Screening Patient's blood pressure: Elevated blood pressure Blood pressure disposition: Referred to PCP Impression Primary Impression: Lower extremity edema Additional Impressions: Cellulitis Skin abrasion Scribe Attestation The scribe's documentation has been prepared under my direction and personally reviewed by me in its entirety. I confirm that the note above accurately reflects all work, treatment, procedures, and medical decision making performed by me. Departure Information Dispostion Home / Self-Care Prescriptions Cephalexin Monohydrate (Keflex) 500 Mg Cap 500 MG PO TID for 7 Days, #21 CAP Prov: Sancho Hu M.D. 12/10/17 Referrals Ronald Smith M.D. (PCP) Forms HOME CARE DOCUMENTATION FORM, IMPORTANT VISIT INFORMATION Patient Instructions My [facility] Problem Qualifiers
[2017-12-10] MEDS ORDERED: METO-217 PO (10:31)
[2017-12-10] MEDS ORDERED: DULA1INJ INJ (10:31)
[2017-12-10] MEDS ORDERED: LPT40 PO (10:31)
[2017-12-10] MEDS ORDERED: WARF-246 PO (10:31)
--- NOTE | 2017-12-10 10:42 | DIAGNOSTIC IMAGING REPORT ---
SINGLE VIEW CHEST CLINICAL HISTORY: Atypical chest pain. FINDINGS: An AP, portable, upright chest radiograph is compared to study dated 09/20/[address] dated 04/20/2016. The examination is degraded by portable technique, large body habitus, and patient rotation. The patient is status post midline sternotomy. The heart is enlarged and there is atherosclerotic calcification of the thoracic aorta. There is prominence of the central pulmonary vessels. There is chronic elevation of right hemidiaphragm and bibasilar atelectasis. Chronic interstitial thickening is similar to previous. No airspace consolidation or large pleural effusion is identified. No pneumothorax is seen. The skeletal structures are osteopenic. The bony thorax is grossly intact. IMPRESSION: 1. Cardiomegaly with prominence of the central pulmonary vasculature. Correlate clinically for evidence of mild congestive failure. 2. No airspace consolidation or large pleural effusion is identified. Electronically signed by: Toribio Hastings M.D. 12/10/2017 10:40 AM Dictated Date/Time: 12/10/2017 10:38 AM
[2017-12-10 11:04] LABS: BASO % 0.4 %; BASO ABS # 0.02 K/uL (0-0.2); EOS % 5.1 %; EOS ABS # 0.26 K/uL (0-0.5); HEMATOCRIT 32.5 % (42-52); HEMOGLOBIN 10.7 g/dL (14.0-18.0); IG# 0.02 K/uL (0.00-0.02); LYMPH % 21.4 %; LYMPH ABS # 1.09 K/uL (1.2-3.4); MEAN CELL VOLUME 87.8 fL (80-100); MEAN CORPUSCULAR HEMOGLOBIN 28.9 pg (25-34); MEAN CORPUSCULAR HGB CONC 32.9 g/dl (32-36); MEAN PLATELET VOLUME 8.5 fL (7.4-10.4); MONO % 11.2 %; MONO ABS # 0.57 K/uL (0.11-0.59); NEUT % 61.5 %; NEUT ABS # 3.13 K/uL (1.4-6.5); PLATELET COUNT 147 K/uL (130-400); RED CELL DISTRIBUTION WIDTH CV 14.1 % (11.5-14.5); RED CELL DISTRIBUTION WIDTH SD 45.1 fL (36.4-46.3); WHITE BLOOD COUNT 5.09 K/uL (4.8-10.8)
[2017-12-10 11:41] LABS: CALCIUM 8.9 mg/dl (8.5-10.1); CREATININE 1.1 mg/dl (0.60-1.40); POTASSIUM 4.5 mmol/L (3.5-5.1)
--- NOTE | 2017-12-10 12:04 | DIAGNOSTIC IMAGING REPORT ---
ULTRASOUND RIGHT LOWER EXTREMITY VENOUS CLINICAL HISTORY: Right leg pain. COMPARISON STUDY: Right lower extremity venous ultrasound dated 08/16/2016. TECHNIQUE: Real-time, grayscale, and color Doppler sonography of the deep veins of the right lower extremity was performed from the inguinal crease to the calf. Compression and augmentation were utilized. FINDINGS: There is no sonographic evidence of deep venous thrombosis identified in the right lower extremity. The common femoral, superficial femoral, and popliteal veins are patent and normally compressible. The greater saphenous vein and the profunda femoris vein at the junction with the common femoral vein are clear. The visualized calf veins are patent. IMPRESSION: There is no sonographic evidence of deep venous thrombosis identified in the right lower extremity. Electronically signed by: Toribio Hastings M.D. 12/10/2017 12:02 PM Dictated Date/Time: 12/10/2017 12:02 PM
[2017-12-10 12:08] VITALS: BP 173/65; PULSE 56; O2SAT 96
[2017-12-10] MEDS ORDERED: CEPH500C PO (12:23)
[2017-12-10] MEDS ORDERED: CEPHALEXIN 500MG HOME PACK 1 EA BTL PO ONE (12:30)
== END 2017-12-10 12:46 | disposition home or self-care (01) ==
LOC: C.EDB 09:55
DX: R60.0 Localized edema (principal); L03.115 Cellulitis of right lower limb; S80.811A Abrasion, right lower leg, initial encounter; X58.XXXA Exposure to other specified factors, initial encounter; Y92.9 Unspecified place or not applicable; E11.9 Type 2 diabetes mellitus without complications; D47.2 Monoclonal gammopathy; I11.0 Hypertensive heart disease with heart failure; Z86.711 Personal history of pulmonary embolism; I50.9 Heart failure, unspecified; E66.01 Morbid (severe) obesity due to excess calories; Z95.1 Presence of aortocoronary bypass graft; Z82.49 Family history of ischemic heart disease and other diseases of the circulatory system; Z80.9 Family history of malignant neoplasm, unspecified; Z79.82 Long term (current) use of aspirin; Z79.01 Long term (current) use of anticoagulants; Z79.899 Other long term (current) drug therapy; Z91.018 Allergy to other foods

== ENCOUNTER 2018-01-01 20:44 | Emergency (ER) | payer OTHER ==
[~2018-01-01] VITALS: Ht 177.8 cm; Wt 144.7 kg
[~2018-01-01 20:44] MED LIST changes: +DULA1INJ INJ; -LPT20 PO; +LPT40 PO; +METO-217 PO; -METO-452 PO; +WARF-246 PO; -WARF5TAB7 PO
[2018-01-01 20:54] VITALS: TEMP 37.2; Ht 177.8 cm; Wt 144.7 kg
[2018-01-01] MEDS ORDERED: LEVALBUTEROL 1.25MG/0.5ML NEB INH STA ×2 (21:03→22:30)
--- NOTE | 2018-01-01 21:05 | EMERGENCY ROOM VISIT NOTE ---
History Report prepared by Vish: Robert Dash Under the Supervision of: Dr. Marquis Mc M.D. First contact with patient: 20:56 Chief Complaint: COUGH Stated Complaint: SHORTNESS OF BREATH Nursing Triage Summary: patient complains of cough and congestion for a few days. increasing cough today with white phlegm. patient states "this is more of a preventative thing because I had bypass on my heart 2 years ago and I don't want anything to stress it out." History of Present Illness The patient is a 77 year old male who presents to the Emergency Room with complaints of worsening congestion beginning a few days ago. The patient states he has a history of a bypass two years ago and does not want to stress it too much. He reports he uses oxygen at night and had to use of it to make him breathe better today. The patient notes he was mildly short of breath before the oxygen. He states he took an stone seltzer 4 days ago, and it mildly dried up his congestion. The patient reports he was evaluated for edema recently, and it has gotten slightly better. He denies chest pain and fevers. The patient is currently taking Coumadin. Source of History: patient Onset: a few days ago Quality: other (congestion) Timing: worsening Modifying Factors (Relieving): other (stone seltzer) Associated Symptoms: + SOB (mild; relieved with O2), No fevers, No chest pain Review of Systems See HPI for pertinent positives & negatives. A total of 10 systems reviewed and were otherwise negative. Past Medical & Surgical Medical Problems: (1) Benign hypertension (2) Bilateral pulmonary embolism (3) Chest pain, rule out acute myocardial infarction (4) Congestive heart failure (5) DIAB PAUL WO COMPL, TYPE II OR UNSPEC TYPE, NOT UNCNTRLD (6) Diabetes (7) MGUS (monoclonal gammopathy of unknown significance) (8) Morbid obesity (9) Pulmonary embolism Surgical Problems: (1) S/P CABG x 3 Family History FH: heart disease FHx: cancer FHx: heart disease Hypertension Social History Smoking Status: Never Smoker Drug Use: none Marital Status: single Housing Status: lives alone Occupation Status: retired Current/Historical Medications Scheduled Aspirin (Aspirin Ec), 81 MG PO QPM Atorvastatin (Lipitor), 1 TAB PO DAILY Cyanocobalamin (Cyanocobalamin), Unknown Dose INJ MONTHLY Dulaglutide (Trulicity), 1 DOSE INJ WK Furosemide (Lasix), 40-80 MG PO DAILY Glyburide (Glyburide Micronized), 9 MG PO QAM Glyburide Micronized (Glyburide Micronized), 6 MG PO QPM Home O2 Therapy (Oxygen), 2 LITERS NA HS Hydralazine Hcl (Apresoline), 25 MG PO QID Latanoprost (Xalatan 0.005% Oph Nadia), 1 DROPS OPB HS Losartan Potassium (Cozaar), 100 MG PO DAILY Metformin Hcl (Glucophage), 1,000 MG PO QDD Metoprolol Succinate (Toprol Xl), 1 TAB PO DAILY Oseltamivir Phosphate (Tamiflu), 75 MG PO BID Oxycodone Hcl (Oxycodone Hcl), 5-10 MG PO Q6H Warfarin Sodium (Warfarin Sodium), 1 TAB PO DAILYUD [ferex iron supp], 150 MG PO QPM Scheduled PRN Acetaminophen (Tylenol), 650 MG PO Q4 PRN for Pain Nystatin (Topical) (Nystatin), 1 APPLN TOP UD PRN for skin impairment Zolpidem Tartrate (Zolpidem Tartrate), 5 MG PO HS PRN for Sleep [triam aveeno oint], 1 APPL TOP DAILY PRN for DRYNESS Allergies Coded Allergies: Mushroom (Verified Adverse Reaction, Intermediate, diarrhea, 01/01/18) Physical Exam Vital Signs Date Time Temp Pulse Resp B/P (MAP) Pulse Ox O2 Delivery O2 Flow Rate FiO2 01/01/18 23:21 78 18 137/67 93 Room Air 01/01/18 23:11 77 16 138/67 97 Room Air 01/01/18 22:45 67 17 94 Room Air 01/01/18 22:19 69 18 170/60 93 Room Air 01/01/18 22:01 67 14 93 Room Air 01/01/18 21:15 94 Room Air 01/01/18 20:55 65 01/01/18 20:54 93 Room Air 01/01/18 20:54 37.2 69 19 186/83 93 Room Air Physical Exam GENERAL: Awake, alert, well-appearing, in no acute distress HENT: Normocephalic, atraumatic. Oropharynx unremarkable. EYES: Normal conjunctiva. Sclera non-icteric. NECK: Supple. No nuchal rigidity. FROM. No JVD. RESPIRATORY: Bilateral wheezing. CARDIAC: Regular rate, normal rhythm. Extremities warm and well perfused. Pulses equal. ABDOMEN: Soft, non-distended. No tenderness to palpation. No rebound or guarding. No masses. RECTAL: Deferred. MUSCULOSKELETAL: Chest examination reveals no tenderness. Old surgical scar down the front of his chest. The back is symmetrical on inspection without obvious abnormality. There is no CVA tenderness to palpation. No joint edema. LOWER EXTREMITIES: Calves are equal size bilaterally and non-tender. No edema. No discoloration. NEURO: Normal sensorium. No sensory or motor deficits noted. SKIN: No rash or jaundice noted. Medical Decision & Procedures ER Provider Diagnostic Interpretation: X-ray results as stated below per interpretation by me and the radiologist: CHEST ONE VIEW PORTABLE HISTORY: Short of breath. COMPARISON: Chest 12/10/2017. FINDINGS: The heart remains mildly enlarged. There is mild central pulmonary vascular congestion without overt edema. No new focal lung consolidations to suggest pneumonia. No pleural effusions. No pneumothorax. Poststernotomy changes. IMPRESSION: Cardiomegaly with mild central pulmonary vascular congestion. Electronically signed by: Sean Saeed M.D. 01/01/2018 9:30 PM Dictated Date/Time: 01/01/2018 9:28 PM Laboratory Results 01/01/18 21:30 Red Blood Count 3.83, Mean Corpuscular Volume 89.0, Mean Corpuscular Hemoglobin 30.0, Mean Corpuscular Hemoglobin Concent 33.7, Mean Platelet Volume 9.6, Neutrophils (%) (Auto) 56.2, Lymphocytes (%) (Auto) 19.8, Monocytes (%) (Auto) 20.6, Eosinophils (%) (Auto) 2.6, Basophils (%) (Auto) 0.5, Neutrophils # (Auto ) 2.15, Lymphocytes # (Auto) 0.76, Monocytes # (Auto) 0.79, Eosinophils # (Auto ) 0.10, Basophils # (Auto) 0.02 01/01/18 21:30 Test 01/01/18 21:30 White Blood Count 3.83 K/uL (4.8-10.8) Red Blood Count 3.83 M/uL (4.7-6.1) Hemoglobin 11.5 g/dL (14.0-18.0) Hematocrit 34.1 % (42-52) Mean Corpuscular Volume 89.0 fL (80-100) Mean Corpuscular Hemoglobin 30.0 pg (25-34) Mean Corpuscular Hemoglobin Concent 33.7 g/dl (32-36) Platelet Count 139 K/uL (130-400) Mean Platelet Volume 9.6 fL (7.4-10.4) Neutrophils (%) (Auto) 56.2 % Lymphocytes (%) (Auto) 19.8 % Monocytes (%) (Auto) 20.6 % Eosinophils (%) (Auto) 2.6 % Basophils (%) (Auto) 0.5 % Neutrophils # (Auto) 2.15 K/uL (1.4-6.5) Lymphocytes # (Auto) 0.76 K/uL (1.2-3.4) Monocytes # (Auto) 0.79 K/uL (0.11-0.59) Eosinophils # (Auto) 0.10 K/uL (0-0.5) Basophils # (Auto) 0.02 K/uL (0-0.2) RDW Standard Deviation 46.5 fL (36.4-46.3) RDW Coefficient of Variation 14.3 % (11.5-14.5) Immature Granulocyte % (Auto) 0.3 % Immature Granulocyte # (Auto) 0.01 K/uL (0.00-0.02) Prothrombin Time 18.1 SECONDS (9.0-12.0) Prothromb Time International Ratio 1.7 (0.9-1.1) Urine Color YELLOW Urine Appearance CLEAR (CLEAR) Urine pH 7.5 (4.5-7.5) Urine Specific [place] 1.019 (1.000-1.030) Urine Protein 1+ (NEG) Urine Glucose (UA) NEG (NEG) Urine Ketones NEG (NEG) Urine Occult Blood NEG (NEG) Urine Nitrite NEG (NEG) Urine Bilirubin NEG (NEG) Urine Urobilinogen NEG (NEG) Urine Leukocyte Esterase NEG (NEG) Urine WBC (Auto) 1-5 /hpf (0-5) Urine RBC (Auto) 5-10 /hpf (0-4) Urine Hyaline Casts (Auto) 0 /lpf (0-5) Urine Epithelial Cells (Auto) 10-20 /lpf (0-5) Urine Bacteria (Auto) NEG (NEG) Anion Gap 4.0 mmol/L (3-11) Est Creatinine Clear Calc Drug Dose 81.1 ml/min Estimated GFR () 75.8 Estimated GFR (Non- 65.4 BUN/Creatinine Ratio 34.1 (10-20) Calcium Level 8.6 mg/dl (8.5-10.1) Total Bilirubin 1.1 mg/dl (0.2-1) Aspartate Amino Transf (AST/SGOT) 18 U/L (15-37) Alanine Aminotransferase (ALT/SGPT) 24 U/L (12-78) Alkaline Phosphatase 100 U/L (45-117) Total Creatine Kinase 38 U/L (39-308) Creatine Kinase MB < 0.5 ng/ml (0.5-3.6) Creatine Kinase MB Ratio (0-3.0) Troponin I 0.019 ng/ml (0-0.045) Total Protein 8.0 gm/dl (6.4-8.2) Albumin 3.5 gm/dl (3.4-5.0) Globulin 4.5 gm/dl (2.5-4.0) Albumin/Globulin Ratio 0.8 (0.9-2) Influenza Type A Antigen Neg for Influ A (NEG) Influenza Type B Antigen POS for Influ B (NEG) Labs reviewed by ED physician. Medications Administered Medications (Trade) Dose Ordered Sig/[place]liot Route Start Time Stop Time Status Last Admin Dose Admin Levalbuterol (Xopenex 1.25MG/ 0.5ML Neb) 1.25 mg NOW STAT INH 01/01/18 21:03 01/01/18 21:06 DC 01/01/18 21:59 1.25 MG Acetaminophen (Tylenol Tab) 1,000 mg NOW STAT PO 01/01/18 22:30 01/01/18 22:32 DC 01/01/18 22:40 1,000 MG Levalbuterol (Xopenex Hfa Inhaler) 2 puffs NOW STAT INH 01/01/18 22:30 01/01/18 22:32 DC 01/01/18 23:11 2 PUFFS Levalbuterol (Xopenex 1.25MG/ 0.5ML Neb) 1.25 mg NOW STAT INH 01/01/18 22:30 01/01/18 22:32 DC 01/01/18 22:45 1.25 MG Oseltamivir Phosphate (Tamiflu Cap) 75 mg NOW STAT PO 01/01/18 22:30 01/01/18 22:32 DC 01/01/18 22:41 75 MG ECG Per My Interpretation Indication: SOB/dyspnea Rate (beats per minute): 64 Rhythm: normal sinus Findings: RBBB, other (No ST elevation or depression) ED Course 2100: Past medical records reviewed. The patient was evaluated in room A10. A complete history and physical examination was performed. 2102: Ordered Levalbuterol 1.25mg INH 2229: Ordered Tamiflu Cap 75mg PO, Levalbuterol 1.25mg INH, Levalbuterol 2 puffs INH, Acetaminophen 1000mg PO 2257: Upon reexamination the patient is resting and feeling better. I discussed results and treatment plan with the patient. He verbalizes agreement and understanding. The patient is ready for discharge. Medical Decision Etiologies such as infections, reactive airway disease, pneumonia, pneumothorax , COPD, CHF, cardiac ischemia, pulmonary embolism, musculoskeletal, gastrointestinal, as well as others were entertained. This is a 77-year-old male presents the emergency department complaining of congestion. I will note that the patient is afebrile upon arrival to the emergency department. He has a depression in his white blood cell count that I believe is consistent with influenza and as such he is positive for the flu. Using shared medical decision making with the patient and going over the risks and benefits of Tamiflu, the patient wishes to start the Tamiflu. For this reason he was given Tamiflu as well as Tylenol here in the emergency department. His INR was noted to be 1.7 and I stressed the need for follow-up with the patient's primary care physician. While in the emergency department the patient received Xopenex for his breathing. He felt much better upon reexamination. The patient is going to need a ride home therefore case management was contacted. I do feel he is well enough to be discharged home however I stressed the need to increase his fluids over the next 48 hours and to take Tylenol every 6 hours. Patient will also be placed on Tamiflu. Medication Reconcilliation Current Medication List: was personally reviewed by me Blood Pressure Screening Patient's blood pressure: Elevated blood pressure Blood pressure disposition: Referred to PCP Impression Primary Impression: Influenza B Scribe Attestation The scribe's documentation has been prepared under my direction and personally reviewed by me in its entirety. I confirm that the note above accurately reflects all work, treatment, procedures, and medical decision making performed by me. Departure Information Dispostion Home / Self-Care Prescriptions Oseltamivir Phosphate (Tamiflu) 75 Mg Cap 75 MG PO BID, #10 CAP Prov: Marquis Mc MD 01/01/18 Referrals Ronald Smith M.D. Forms HOME CARE DOCUMENTATION FORM, IMPORTANT VISIT INFORMATION Patient Instructions ED Flu, Flu, My [facility] Additional Instructions Take 1000 mg Tylenol every 6 hours Increase fluids next 48 hours Use inhaler twice every 6 hours You have been examined and treated today on an emergency basis only. This is not a substitute for, or an effort to provide, complete comprehensive medical care. It is impossible to recognize and treat all injuries or illnesses in a single emergency department visit. It is therefore important that you follow up closely with Dr Smith. Call as soon as possible for an appointment. Thank you for your time and consideration. I look forward to speaking with you again soon. Please don't hesitate to call us if you have any questions.
[2018-01-01 21:15] VITALS: O2SAT 94
--- NOTE | 2018-01-01 21:31 | DIAGNOSTIC IMAGING REPORT ---
CHEST ONE VIEW PORTABLE HISTORY: Short of breath. COMPARISON: Chest 12/10/2017. FINDINGS: The heart remains mildly enlarged. There is mild central pulmonary vascular congestion without overt edema. No new focal lung consolidations to suggest pneumonia. No pleural effusions. No pneumothorax. Poststernotomy changes. IMPRESSION: Cardiomegaly with mild central pulmonary vascular congestion. Electronically signed by: Sean Saeed M.D. 01/01/2018 9:30 PM Dictated Date/Time: 01/01/2018 9:28 PM
[2018-01-01 22:01] VITALS: PULSE 67; O2SAT 93
[2018-01-01 22:10] LABS: BASO % 0.5 %; BASO ABS # 0.02 K/uL (0-0.2); EOS % 2.6 %; HEMATOCRIT 34.1 % (42-52); HEMOGLOBIN 11.5 g/dL (14.0-18.0); IG# 0.01 K/uL (0.00-0.02); LYMPH % 19.8 %; LYMPH ABS # 0.76 K/uL (1.2-3.4); MEAN CORPUSCULAR HGB CONC 33.7 g/dl (32-36); MEAN PLATELET VOLUME 9.6 fL (7.4-10.4); MONO % 20.6 %; MONO ABS # 0.79 K/uL (0.11-0.59); NEUT % 56.2 %; NEUT ABS # 2.15 K/uL (1.4-6.5); PLATELET COUNT 139 K/uL (130-400); RED CELL DISTRIBUTION WIDTH CV 14.3 % (11.5-14.5); RED CELL DISTRIBUTION WIDTH SD 46.5 fL (36.4-46.3); WHITE BLOOD COUNT 3.83 K/uL (4.8-10.8)
[2018-01-01 22:19] LABS: INR 1.7 (0.9-1.1)
[2018-01-01 22:24] LABS: INFLUENZA B ANTIGEN POS for Influ B (NEG)
[2018-01-01] MEDS ORDERED: LEValbuterol HFA 15GM INHALER INH STA (22:30)
[2018-01-01] MEDS ORDERED: ACETAMINOPHEN 500 MG TAB PO STA (22:30)
[2018-01-01] MEDS ORDERED: OSELTAMIVIR PHOSPHATE 75 MG CAP PO STA (22:30)
[2018-01-01 22:45] VITALS: PULSE 67; O2SAT 94
[2018-01-01 22:49] LABS: ALBUMIN 3.5 gm/dl (3.4-5.0); ALT/SGPT 24 U/L (12-78); AST/SGOT 18 U/L (15-37); BLOOD UREA NITROGEN 37 mg/dl (7-18); CALCIUM 8.6 mg/dl (8.5-10.1); CARBON DIOXIDE 29 mmol/L (21-32); CREATININE 1.08 mg/dl (0.60-1.40); GLUCOSE 81 mg/dl (70-99); POTASSIUM 4.3 mmol/L (3.5-5.1); SODIUM 141 mmol/L (136-145)
[2018-01-01 22:54] LABS: ALKALINE PHOSPHATASE 100 U/L (45-117); CKMB < 0.5 ng/ml (0.5-3.6)
[2018-01-01] MEDS ORDERED: OSEL75CA23 PO (23:10)
[2018-01-01 23:21] VITALS: BP 137/67; PULSE 78; O2SAT 93
== END 2018-01-01 23:18 | disposition home or self-care (01) ==
LOC: EDBD 20:44 → C.EDA 20:45
DX: J10.1 Influenza due to other identified influenza virus with other respiratory manifestations (principal); I11.0 Hypertensive heart disease with heart failure; E11.9 Type 2 diabetes mellitus without complications; D47.2 Monoclonal gammopathy; I50.9 Heart failure, unspecified; Z86.711 Personal history of pulmonary embolism; Z95.1 Presence of aortocoronary bypass graft; Z91.018 Allergy to other foods; Z82.49 Family history of ischemic heart disease and other diseases of the circulatory system; Z79.01 Long term (current) use of anticoagulants; Z79.82 Long term (current) use of aspirin; Z79.84 Long term (current) use of oral hypoglycemic drugs; Z79.899 Other long term (current) drug therapy

== ENCOUNTER → 2018-04-16 | Outpatient (CLI) | payer OTHER ==
[~2018-04-16] MED LIST changes: +OSEL75CA23 PO
[2018-04-16 18:08] LABS: ALBUMIN 3.2 gm/dl (3.4-5.0); ALKALINE PHOSPHATASE 105 U/L (45-117); ALT/SGPT 20 U/L (12-78); AST/SGOT 12 U/L (15-37); BLOOD UREA NITROGEN 22 mg/dl (7-18); CARBON DIOXIDE 24 mmol/L (21-32); CREATININE 0.92 mg/dl (0.60-1.40); GLUCOSE 84 mg/dl (70-99); POTASSIUM 4.7 mmol/L (3.5-5.1); SODIUM 138 mmol/L (136-145); TOTAL PROTEIN 7.8 gm/dl (6.4-8.2)
[2018-04-17 06:12] LABS: HEMOGLOBIN A1C 6.9 % (4.5-5.6)
== END | disposition home or self-care (01) ==
LOC: C.LABBFT 11:34
PROVIDERS: ATTEND Internal Medicine
DX: I10 Essential (primary) hypertension (principal); E78.5 Hyperlipidemia, unspecified; Z12.5 Encounter for screening for malignant neoplasm of prostate; E66.01 Morbid (severe) obesity due to excess calories; E11.29 Type 2 diabetes mellitus with other diabetic kidney complication; E11.39 Type 2 diabetes mellitus with other diabetic ophthalmic complication

== ENCOUNTER 2018-09-06 18:45 | Inpatient (IN) ==
[2018-09-06 19:29] LABS: Basophils # (auto) 0.02 K/uL (0-0.2); Basophils % (auto) 0.2 %; Eosinophils # (auto) 0.07 K/uL (0-0.5); Eosinophils % (auto) 0.8 %; Hematocrit (blood only) 31.7 % (42-52); Hemoglobin 9.9 g/dL (14.0-18.0); Immature Granulocytes # (auto) 0.07 K/uL (0.00-0.02); Immature Granulocytes % (auto) 0.8 %; Lymphocytes # (auto) 1.11 K/uL (1.2-3.4); Lymphocytes % (auto) 12.7 %; Mean Corpuscular Hgb Conc 31.2 g/dL (32-36); Mean Corpuscular Volume 91.9 fL (80-100); Mean Platelet Volume 9.2 fL (7.4-10.4); Monocytes # (auto) 0.82 K/uL (0.11-0.59); Monocytes % (auto) 9.4 %; Neutrophils # (auto) 6.62 K/uL (1.4-6.5); Neutrophils % (auto) 76.1 %; Platelet Count 225 K/uL (130-400); RDW Standard Deviation 50.6 fL (36.4-46.3); Red Blood Count 3.45 M/uL (4.7-6.1); White Blood Count 8.71 K/uL (4.8-10.8)
[2018-09-06 19:36] LABS: INR 1.1 (0.9-1.1); Prothrombin Time 11.5 Seconds (9.0-12.0)
[2018-09-06 19:51] LABS: BUN Creatinine Ratio 37.2 (10-20); Calcium 9.4 mg/dl (8.5-10.1); Creatinine Clr Calc Pharmacy 50.6 ml/min; Est GFR (African American) 44.4; Est GFR (Non-African American) 38.3
[2018-09-06] MEDS ORDERED: DEXTROSE 50% 50 ML SYRINGE IV STA (19:56)
[2018-09-06] MEDS ORDERED: ALBUTEROL 0.083% NEBU SOLN 3 ML VIAL NEB STA (19:56)
[2018-09-06] MEDS ORDERED: NovoLIN-R INSULIN PER UNIT CHARGE IV STA (19:56)
[2018-09-06] MEDS ORDERED: CALCIUM GLUCONATE 10% 1,000 MG in SODIUM CHLORIDE 0.9% 50 ML IV STA (19:56)
[2018-09-06] MEDS ORDERED: CALCIUM GLUCONATE 10% 10 ML VIAL IV ONE (20:11)
[2018-09-06] MEDS ORDERED: ALBUMIN 25% 50 ML with FUROSEMIDE 40 MG IV STA (20:38)
[2018-09-06] MEDS: HYDROCODONE/ACETAMOPHEN 5/325MG TAB PO PRN (21:37)
--- NOTE | 2018-09-06 22:14 | Emergency Department Note ---
Entered by Donis Mccord acting as a scribe for History of Present Illness General Chief complaint: Abnormal Labs/Diagnostic Testing Stated complaint: high potassium level Source: patient Limitations: no limitations History of Present Illness Provider complaint: Abnormal outpatient labs Onset (ago): hour(s) (7 hours) Severity: moderate (potassium of 6.2 and creatinine of 1.89) Pain Consistency: + other (abnormal labs draw today) Quality: + other (abnormal potassium and creatinine ) Associated symptoms: + denies other symptoms Treatments prior to arrival: none The patient is a 78 year old male who presents to the Emergency Room after referral from his primary care office for abnormal laboratory findings. The patient states that he had outpatient labs drawn today as part of a routine check-up. He was referred to the emergency department and was told that his potassium was elevated. The patient denies any physical symptoms including palpitations, chest pain, or fevers. He adds that his primary care office instructed him to stop taking his Losartin and Torsemide one week ago, and he has not resumed them to this point. He is unsure why they instructed him to stop taking the medications, but adds that he was told his Ketones were slightly elevated. He is on Coumadin with a history of pulmonary emboli and bypass surgery. He is currently on an antibiotic for a cellulitis of his lower extremity. Home Medications Home Medications Medication Instructions Recorded Confirmed Type acetaminophen 650 mg PO Q4H PRN 07/09/18 09/06/18 History aspirin [Aspirin Low Dose] 81 mg PO DAILY 07/09/18 09/06/18 History atorvastatin 40 mg PO DAILY 07/09/18 09/06/18 History cyanocobalamin (vitamin B-12) 1,000 mcg SUBCUT MONTHLY 07/09/18 09/06/18 History dulaglutide 1 dose SUBCUT WK 07/09/18 09/06/18 History ferrous sulfate [iron] 325 mg PO DAILY 07/09/18 09/06/18 History glyburide micronized 6 mg PO QPM 07/09/18 09/06/18 History glyburide micronized 9 mg PO DAILY 07/09/18 09/06/18 History latanoprost 1 drp OPHTHALMIC (EYE) PM 07/09/18 09/06/18 History losartan 100 mg PO UD 07/09/18 09/06/18 History metformin 1,000 mg PO DAILY 07/09/18 09/06/18 History metoprolol succinate 50 mg PO DAILY 07/09/18 09/06/18 History nystatin 1 applic TOPICAL DAILY PRN 07/09/18 09/06/18 History zolpidem 5 mg PO HS PRN 07/09/18 09/06/18 History brimonidine [Alphagan P] 2 drp OPR DAILY 07/20/18 09/06/18 History bacitracin 1 applic EXT BID #28 gm 08/12/18 09/06/18 Rx hydralazine 50 mg PO QID #0 tab 08/12/18 09/06/18 Rx hydrocodone-acetaminophen [[place]] 1 tab PO Q8 PRN #15 tab 08/12/18 09/06/18 Rx torsemide 20 mg PO QAM #30 tab 08/12/18 09/06/18 Rx levofloxacin 500 mg tablet 500 mg PO DAILY #30 tab 08/23/18 09/06/18 Rx collagenase clostridium 1 applic TOP DAILY 14 Days #30 gm 09/06/18 09/06/18 Rx histolyticum 250 unit/gram topical ointment oxycodone-acetaminophen [Percocet] 0.5 - 1 tab PO UD PRN 09/06/18 09/06/18 History warfarin [Coumadin] 1 mg PO DAILY 09/06/18 09/06/18 History Allergies Allergy/AdvReac Type Severity Reaction Status Date / Time mushroom AdvReac Intermediate diarrhea Verified 09/06/18 14:49 Past Med/Surg History Medical History Lymphedema (Chronic) Cellulitis CHF (congestive heart failure) (Chronic) Diabetes (Chronic) CAD (coronary artery disease) Chronic venous stasis Hypertension Pulmonary embolism Surgical History S/P CABG (coronary artery bypass graft) Family History Other Colon cancer Diabetes Social History marital status: Single Current Living Situation: Alone Feels Safe at Home: Yes Smoking Status: Never smoker Hx Alcohol Use: No Hx Substance Use: No Beliefs That Will Affect Care: None Preferred Language: Japanese Communication Ability: Effective Visual Impairment: Diminished Hearing Ability: Normal Review of Systems See HPI for pertinent positives & negatives. and A total of 10 systems reviewed and were otherwise negative Physical Exam Vital Signs Vital Signs - 24 hr 09/06/18 18:47 09/06/18 20:30 09/06/18 22:01 Temperature 36.7 C Temperature Source Oral Sepsis Recent Fever Within 48 Hours No Sepsis Action Taken by Nursing No Action Required Pulse Rate 73 Pulse Rate [Apical] 77 87 Pulse Rhythm [Apical] Regular Regular Pulse Strength Normal Pulse Strength [Apical] Normal Normal Respiratory Rate 18 22 17 Respiratory Effort / Characteristics Non-Labored Spontaneous Non-Labored Spontaneous Non-Labored Spontaneous Respiratory Depth Normal Normal Normal Respiratory Pattern Regular Regular Blood Pressure 152/75 H Blood Pressure [Right Arm] 170/64 H 138/70 Blood Pressure Mean 100 Blood Pressure Mean [Right Arm] 99 92 Blood Pressure Position Sitting Blood Pressure Position [Right Arm] Sitting Lying Pulse Oximetry 96 97 93 Oxygen Delivery Method Room Air Room Air Room Air Constitutional: Vital signs reviewed. Eyes: Pupils are equal round reactive to light. Conjunctiva are noninjected. ENT: Pharynx is clear without erythema or exudate. Mucous membranes are moist. Neck supple without meningeal signs. Respiratory: Clear to auscultation bilaterally. Breath sounds are equal bilaterally. Cardiovascular: Regular rate and rhythm. No rubs or gallops. GI: Soft, nondistended and nontender. Bowel sounds are present. Musculoskeletal: There is bilateral lower extremity edema. Legs are wrapped bilaterally. Integumentary: No cyanosis. Neurological: The patient is awake and alert. No focal deficits. Psychiatric: Normal affect. Course 185: Past medical records reviewed. The patient was evaluated in room C8, and a complete history and physical examination were performed. 2001: I checked on the patient at this time. I discussed test results. He is currently eating a sandwich. 2023: I reviewed the patient's case with Dr. David DE LA ROSA Hospitalist. He will evaluate the patient for further management. 2052: I checked on the patient at this time. His BSG is 78. Dr. Harvey held D50 and insulin. Consultations Consultation #1: 2023: I reviewed the patient's case with Dr. David DE LA ROSA Hospitalist. He will evaluate the patient for further management. Administered Medications Hydrocodone Bitart/Acetaminophen ([place] 5/325) 1 tab PO Q4H PRN PRN Reason: Moderate Pain Stop: 09/20/18 21:27 Last Admin: 09/06/18 21:37 Dose: 1 tab Discontinued Medications Albuterol (Ventolin 0.083% 2.5mg/3ml) 2.5 mg NEB NOW STA Stop: 09/06/18 19:57 Last Admin: 09/06/18 20:18 Dose: 2.5 mg Calcium Gluconate (Calcium Gluconate 10%) Confirm Administered Dose 1,000 mg IV .STK-MED ONE Stop: 09/06/18 20:12 Last Admin: 09/06/18 20:30 Dose: Not Given Dextrose (Dextrose 50%) 50 ml IV NOW STA Stop: 09/06/18 19:57 Last Admin: 09/06/18 20:29 Dose: Not Given Calcium Gluconate 1,000 mg/ (Sodium Chloride) 60 mls @ 240 mls/hr IV NOW STA Stop: 09/06/18 20:10 Last Infusion: 09/06/18 20:57 Dose: 0 mls/hr Admin: 09/06/18 20:27 Dose: 240 mls/hr Furosemide 40 mg/ Albumin (Human) 54 mls @ 54 mls/hr IV NOW STA Stop: 09/06/18 21:37 Last Admin: 09/06/18 20:55 Dose: 54 mls/hr Insulin Human Regular (Novolin R U-100 Per Unit) 5 units IV NOW STA Stop: 09/06/18 19:57 Last Admin: 09/06/18 20:30 Dose: Not Given . Medical Decision Making Differential Diagnosis Differential Diagnosis includes: JOHNNY, hyperkalemia, hemolysis, dysrhythmia, metabolic derrangement. Medical Records Attestation: I reviewed the patient's medical records. Home Medications Current Medication List: was personally reviewed by me Laboratory Data Attestation: I reviewed the patient's lab results. Result diagrams: 09/06/18 19:19 09/06/18 19:19 Lab Results 09/06/18 09/06/18 09/06/18 Range/Units 19:19 19:19 19:19 WBC 8.71 (4.8-10.8) K/uL RBC 3.45 L (4.7-6.1) M/uL Hgb 9.9 L (14.0-18.0) g/dL Hct 31.7 L (42-52) % MCV 91.9 (80-100) fL MCH 28.7 (25-34) pg MCHC 31.2 L (32-36) g/dL RDW Std Deviation 50.6 H (36.4-46.3) fL RDW Coeff of Bishnu 15.0 H (11.5-14.5) % Plt Count 225 (130-400) K/uL MPV 9.2 (7.4-10.4) fL Immature Gran % (Auto) 0.8 % Neut % (Auto) 76.1 % Lymph % (Auto) 12.7 % [place] % (Auto) 9.4 % Eos % (Auto) 0.8 % Baso % (Auto) 0.2 % Immature Gran # (Auto) 0.07 H (0.00-0.02) K/uL Neut # (Auto) 6.62 H (1.4-6.5) K/uL Lymph # (Auto) 1.11 L (1.2-3.4) K/uL [place] # (Auto) 0.82 H (0.11-0.59) K/uL Eos # (Auto) 0.07 (0-0.5) K/uL Baso # (Auto) 0.02 (0-0.2) K/uL PT 11.5 (9.0-12.0) Seconds INR 1.1 (0.9-1.1) Sodium 140 (136-145) mmol/L Potassium 6.0 H (3.5-5.1) mmol/L Chloride 110 H (98-107) mmol/L Carbon Dioxide 23 (21-32) mmol/L Anion Gap 7.0 (3-11) BUN 62 H (7-18) mg/dl Creatinine 1.67 H (0.6-1.4) mg/dl Est Cr Clr Drug Dosing 50.6 ml/min Est GFR ( Amer) 44.4 Est GFR (Non-Af Amer) 38.3 BUN/Creatinine Ratio 37.2 H (10-20) Glucose 52 L* (70-99) mg/dl POC Glucose (70-99) Calcium 9.4 (8.5-10.1) mg/dl 12/27/18 Range/Units 20:52 WBC (4.8-10.8) K/uL RBC (4.7-6.1) M/uL Hgb (14.0-18.0) g/dL Hct (42-52) % MCV (80-100) fL MCH (25-34) pg MCHC (32-36) g/dL RDW Std Deviation (36.4-46.3) fL RDW Coeff of Bishnu (11.5-14.5) % Plt Count (130-400) K/uL MPV (7.4-10.4) fL Immature Gran % (Auto) % Neut % (Auto) % Lymph % (Auto) % [place] % (Auto) % Eos % (Auto) % Baso % (Auto) % Immature Gran # (Auto) (0.00-0.02) K/uL Neut # (Auto) (1.4-6.5) K/uL Lymph # (Auto) (1.2-3.4) K/uL [place] # (Auto) (0.11-0.59) K/uL Eos # (Auto) (0-0.5) K/uL Baso # (Auto) (0-0.2) K/uL PT (9.0-12.0) Seconds INR (0.9-1.1) Sodium (136-145) mmol/L Potassium (3.5-5.1) mmol/L Chloride (98-107) mmol/L Carbon Dioxide (21-32) mmol/L Anion Gap (3-11) BUN (7-18) mg/dl Creatinine (0.6-1.4) mg/dl Est Cr Clr Drug Dosing ml/min Est GFR ( Amer) Est GFR (Non-Af Amer) BUN/Creatinine Ratio (10-20) Glucose (70-99) mg/dl POC Glucose 78 (70-99) Calcium (8.5-10.1) mg/dl ECG Data Attestation: I personally reviewed and interpreted this ECG as follows: Indication: other (Hyperkalemia) Rate (beats per minute): 74 Rhythm: other (wide complex undetermined rhythm) Findings: + other (QRS is 126) and + peaked T-waves Comparison ECG Date: from (08/08/2018) Change: no significant change Additional Comments: REPEAT EKG SHOWS: Wide complex, QRS is 132, RBBB. no change from original. Blood Pressure Blood Pressure Findings: Elevated blood pressure Blood Pressure Disposition: Referred to patients primary care provider MDM Narrative I did perform a limited focused review of portions of the patient's old chart on the electronic medical record. The patient had a Potassium level drawn today at 1330 which was 6.2. He had a creatinine of 1.89 as well. I did evaluate the patient as noted above. The patient is presenting with an elevated potassium. He has no symptoms. IV access was established. The patient was placed on a continuous registered nurse cardiac. I did order and personally review the patient's 12-lead EKG as described above. He has some widening of the QRS as well as a right bundle branch block on twelve-lead EKG. I did order and review the patient's blood work as noted in the electronic medical record. He does have a potassium is 6. His glucose is 52. He was given food. I did order D50 1 amp IV. I did also order 5 units of insulin IV because of his potassium. He was also given calcium gluconate IV as well as an albuterol nebulizer. His blood work also demonstrated a INR of 1.1 despite him being on Coumadin. I did discuss the test results with the patient. Recheck of his blood sugar was 72. I did repeat another twelve-lead EKG which shows persistent right bundle branch block per my interpretation with a widened QRS. I did recommend hospitalization. I did discuss case with the hospitalist and case technician. I did discuss the test results with the patient. Impression & Plan Hyperkalemia, Chronic kidney disease, Subtherapeutic international normalized ratio (INR), Chronic anemia, Hypoglycemia Critical Care Time I have personally spent 35 minutes of critical care time in the direct management of this patient. This includes bedside care, interpretation of diagnostic studies, and testing, discussion with consultants, patient, and family members, and other required patient management activities. These minutes are in excess of all separately billable procedures. Discharge Plan Visit Data Chief Complaint: Abnormal Labs/Diagnostic Testing Stated Complaint: high potassium level ED Provider: Flaco Barajas Discharge Problem: Hyperkalemia, Chronic kidney disease, Subtherapeutic international normalized ratio (INR), Chronic anemia, Hypoglycemia Patient Disposition: Being Evaluated by Hospitalist Forms Stand Alone Forms: [facility] Prescriptions Prescriptions: No Action levofloxacin 500 mg tablet 500 mg PO DAILY Qty: 30 RF: 1 collagenase clostridium histo. [S[place]yl] 250 unit/gram ointment 1 applic TOP DAILY 14 Days Qty: 30 RF: 2 brimonidine [Alphagan P] 0.1 % drops 2 drp OPR DAILY RF: 0 hydrocodone-acetaminophen [[place]] 5-325 mg Tablet 1 tab PO Q8 PRN (Reason: pain) Qty: 15 RF: 0 torsemide 20 mg Tablet 20 mg PO QAM Qty: 30 RF: 0 bacitracin 500 unit/gram Ointment 1 applic EXT BID Qty: 28 RF: 0 hydralazine 25 mg Tablet 50 mg PO QID Qty: 0 RF: 0 latanoprost 0.005 % Drops 1 drp OPHTHALMIC (EYE) PM RF: 0 atorvastatin 40 mg Tablet 40 mg PO DAILY RF: 0 glyburide micronized 6 mg Tablet 9 mg PO DAILY RF: 0 glyburide micronized 6 mg Tablet 6 mg PO QPM RF: 0 metoprolol succinate 50 mg Tablet Extended Release 24 Hr 50 mg PO DAILY RF: 0 aspirin [Aspirin Low Dose] 81 mg Tablet,Delayed Release (Dr/Ec) 81 mg PO DAILY RF: 0 cyanocobalamin (vitamin B-12) 1,000 mcg/mL Solution 1,000 mcg SUBCUT MONTHLY RF: 0 ferrous sulfate [iron] 325 mg (65 mg iron) Tablet 325 mg PO DAILY RF: 0 metformin 1,000 mg Tablet 1,000 mg PO DAILY RF: 0 nystatin 100,000 unit/gram cream 1 applic Topical DAILY PRN (Reason: BREAKOUTS) RF: 0 zolpidem 5 mg Tablet 5 mg PO HS PRN (Reason: Insomnia) RF: 0 losartan 100 mg Tablet 100 mg PO UD RF: 0 acetaminophen 325 mg Capsule 650 mg PO Q4H PRN (Reason: Pain) RF: 0 dulaglutide 0.75 mg/0.5 mL Pen Injector 1 dose subcut WK RF: 0 oxycodone-acetaminophen [Percocet] 5-325 mg tablet 0.5 - 1 tab PO UD PRN (Reason: Pain) RF: 0 warfarin [Coumadin] 1 mg tablet 1 mg PO DAILY RF: 0 Referrals Referrals: Ronald Smith III, MD [Primary Care Provider] - The scribe's documentation has been prepared under my direction and personally reviewed by me in its entirety. I confirm that the note above accurately reflects all work, treatment, procedures, and medical decision making performed by me.
--- NOTE | 2018-09-06 23:37 | History & Physical Report ---
Date of Service September 06, 2018 Assessment & Plan (1) Hyperkalemia: Potassium was 6.2 and outpatient laboratories, with repeat 6.0 in the ED tonight. We will simultaneously treat elevated potassium and worsening venous insufficiency with combination albumin 25 g with Lasix 40 mg IV tonight, and then twice daily. Follow serial BMP and magnesium levels. Present on Admission?: Yes (2) Chronic kidney disease: Creatinine upon admission 1.67, with a range 1.75-2.29. Likely secondary to volume overload. Follow serial laboratories with diuresis as noted. Present on Admission?: Yes (3) Cellulitis of right lower extremity: Has been on Levaquin 500 mg orally in the outpatient setting per Dr. Mendez from infectious disease. For now, change Levaquin to 500 mg IV daily and vancomycin 1 g IV daily. We will consult wound care and infectious disease. Present on Admission?: Yes (4) CAD (coronary artery disease): CAD/hypertension/CHF-- Continue aspirin 81 mg daily, hydralazine 50 mg p.o. 4 times daily and metoprolol succinate 50 mg p.o. daily. For now hold losartan 100 mg daily and torsemide 20 mg every morning. Placed on albumin 25 g with Lasix 40 mg IV twice daily as noted above. Present on Admission?: Yes (5) Hypertension: As above. Present on Admission?: Yes (6) Iron deficiency anemia: Continue ferrous sulfate supplement. Present on Admission?: Yes (7) Chronic venous insufficiency: Albumin with Lasix IV as noted above. Work on decreasing lower extremity fluid collections to help with healing of venous ulcers. Present on Admission?: Yes (8) Venous stasis ulcer: Change Levaquin p.o. to Levaquin IV as noted. Add vancomycin IV. Consult wound care and infectious disease as noted. Present on Admission?: Yes (9) Hypoglycemia: Hypoglycemia and associated diabetes mellitus-- Hold metformin and dulaglutide. Significantly decreased glyburide twice daily. Placed on Accu-Cheks before meals and at bedtime with NovoLog coverage per scale. Present on Admission?: Yes (10) Congestive heart failure: As noted above. Will resume outpatient dosing of torsemide after improved fluid balance obtained with albumin and Lasix IV. Present on Admission?: Yes (11) Diabetes: As noted above. Present on Admission?: Yes (12) PE (pulmonary embolism): Patient's present dosing of warfarin as 1 mg daily. INR is subtherapeutic. Unclear why this dosing has been used. Will need to be looked into when offices are open in the a.m. Present on Admission?: Yes (13) Venous stasis syndrome: As above. Present on Admission?: Yes History of Present Illness Chief Complaint: The patient presents to the emergency department after being referred from his PCP for abnormal laboratory work performed at a routine office visit earlier in the day prior to arrival. Primary Care Provider: Ronald Smith III, MD The patient is a 78-year-old male who was seen in his PCPs office earlier today for routine office visit, underwent routine laboratories, which were noted to be abnormal later on in the day, and he was notified by his PCPs office to come to the emergency department for assessment. He reports that he did have his losartan and torsemide stopped 1 week ago for unknown reasons. He does note increasing lower extremity edema since that time. He follows with the wound care clinic for a right lower extremity cellulitis, for which he is on Santyl, and for which he is prescribed levofloxacin by infectious disease Dr. Mendez. He does take [place] periodically for lower extremity pain. Allergies Allergy/AdvReac Type Severity Reaction Status Date / Time mushroom AdvReac Intermediate diarrhea Verified 09/06/18 14:49 Home Medications Home Medications Medication Instructions Recorded Confirmed Type acetaminophen 650 mg PO Q4H PRN 07/09/18 09/06/18 History aspirin [Aspirin Low Dose] 81 mg PO DAILY 07/09/18 09/06/18 History atorvastatin 40 mg PO DAILY 07/09/18 09/06/18 History cyanocobalamin (vitamin B-12) 1,000 mcg SUBCUT MONTHLY 07/09/18 09/06/18 History dulaglutide 1 dose SUBCUT WK 07/09/18 09/06/18 History ferrous sulfate [iron] 325 mg PO DAILY 07/09/18 09/06/18 History glyburide micronized 6 mg PO QPM 07/09/18 09/06/18 History glyburide micronized 9 mg PO DAILY 07/09/18 09/06/18 History latanoprost 1 drp OPHTHALMIC (EYE) PM 07/09/18 09/06/18 History losartan 100 mg PO UD 07/09/18 09/06/18 History metformin 1,000 mg PO DAILY 07/09/18 09/06/18 History metoprolol succinate 50 mg PO DAILY 07/09/18 09/06/18 History nystatin 1 applic TOPICAL DAILY PRN 07/09/18 09/06/18 History zolpidem 5 mg PO HS PRN 07/09/18 09/06/18 History brimonidine [Alphagan P] 2 drp OPR DAILY 07/20/18 09/06/18 History bacitracin 1 applic EXT BID #28 gm 08/12/18 09/06/18 Rx hydralazine 50 mg PO QID #0 tab 08/12/18 09/06/18 Rx hydrocodone-acetaminophen [[place]] 1 tab PO Q8 PRN #15 tab 08/12/18 09/06/18 Rx torsemide 20 mg PO QAM #30 tab 08/12/18 09/06/18 Rx levofloxacin 500 mg tablet 500 mg PO DAILY #30 tab 08/23/18 09/06/18 Rx collagenase clostridium 1 applic TOP DAILY 14 Days #30 gm 09/06/18 09/06/18 Rx histolyticum 250 unit/gram topical ointment oxycodone-acetaminophen [Percocet] 0.5 - 1 tab PO UD PRN 09/06/18 09/06/18 History warfarin [Coumadin] 1 mg PO DAILY 09/06/18 09/06/18 History Past Med/Surg History Medical History Lymphedema (Chronic) Cellulitis CHF (congestive heart failure) (Chronic) Diabetes (Chronic) CAD (coronary artery disease) Chronic venous stasis Hypertension Pulmonary embolism Surgical History S/P CABG (coronary artery bypass graft) Family History Other Colon cancer Diabetes Social History marital status: Single Current Living Situation: Alone Other Information That Helps Us Care for You: No Feels Safe at Home: Yes Safety Concerns: Feels Safe At This Time Smoking Status: Never smoker Hx Alcohol Use: No Hx Substance Use: No Beliefs That Will Affect Care: None Preferred Language: Bhutanese Communication Ability: Effective Review of Systems The patient denies chest pain, palpitations, any change in his chronic shortness of breath and dyspnea on exertion, cough, sore throat, fevers, chills, sweats, nausea, vomiting, diarrhea , constipation, abdominal pain, pelvic pain, blood in urine or stool, dysuria, urinary frequency or urgency, lightheadedness , dizziness, headache, memory loss, loss of consciousness, rash, abnormal bruising or bleeding, imbalance, focal or generalized weakness, numbness or tingling in arms, generalized arthralgias or myalgias, back or neck pain, or night sweats. The review of systems is otherwise negative other than for that already noted above, and at least 10 systems have been reviewed. Physical Exam 2 Vital Signs (Past 24 Hours): Last Vital Signs Temp 36.7 C 09/06/18 18:47 Pulse 87 09/06/18 22:01 Resp 17 09/06/18 22:01 BP 138/70 09/06/18 22:01 Pulse Ox 93 09/06/18 22:01 Physical Exam: The patient is awake, alert and oriented 3, normocephalic and atraumatic, lying in bed and in no acute distress. HEENT--PERRL, EOMI, mucous membranes and oropharynx normal. Neck--supple. No JVD. No bruits. Thyroid normal, trachea midline, no adenopathy. Heart--normal S1 and S2. No murmurs, rubs or gallops. Lungs--crackles at the bases to retirement up bilaterally. Abdomen--normal bowel sounds and soft. Nontender. Nondistended. Morbidly obese Extremities--no cyanosis or clubbing. There is bilateral pretibial 2+ pitting edema. There are good distal pulses b/l. LE wrapped bilaterally. Dermatologic--erythema and induration right greater than left lower extremity. Neurologic--cranial nerves II through XII grossly intact. Rheumatologic--normal range of motion. Psychiatric--normal affect. Results & Data Laboratory Results Laboratory Results WBC 8.71 K/uL (4.8-10.8) 09/06/18 19:19 RBC 3.45 M/uL (4.7-6.1) L 09/06/18 19:19 Hgb 9.9 g/dL (14.0-18.0) L 09/06/18 19:19 Hct 31.7 % (42-52) L 09/06/18 19:19 MCV 91.9 fL (80-100) 09/06/18 19:19 MCH 28.7 pg (25-34) 09/06/18 19:19 MCHC 31.2 g/dL (32-36) L 09/06/18 19:19 RDW Std Deviation 50.6 fL (36.4-46.3) H 09/06/18 19:19 RDW Coeff of Bishnu 15.0 % (11.5-14.5) H 09/06/18 19:19 Plt Count 225 K/uL (130-400) 09/06/18 19:19 MPV 9.2 fL (7.4-10.4) 09/06/18 19:19 Immature Gran % (Auto) 0.8 % 09/06/18 19:19 Neut % (Auto) 76.1 % 09/06/18 19:19 Lymph % (Auto) 12.7 % 09/06/18 19:19 [place] % (Auto) 9.4 % 09/06/18 19:19 Eos % (Auto) 0.8 % 09/06/18 19:19 Baso % (Auto) 0.2 % 09/06/18 19:19 Immature Gran # (Auto) 0.07 K/uL (0.00-0.02) H 09/06/18 19:19 Neut # (Auto) 6.62 K/uL (1.4-6.5) H 09/06/18 19:19 Lymph # (Auto) 1.11 K/uL (1.2-3.4) L 09/06/18 19:19 [place] # (Auto) 0.82 K/uL (0.11-0.59) H 09/06/18 19:19 Eos # (Auto) 0.07 K/uL (0-0.5) 09/06/18 19:19 Baso # (Auto) 0.02 K/uL (0-0.2) 09/06/18 19:19 PT 11.5 Seconds (9.0-12.0) 09/06/18 19:19 INR 1.1 (0.9-1.1) 09/06/18 19:19 Sodium 140 mmol/L (136-145) 09/06/18 19:19 Potassium 6.0 mmol/L (3.5-5.1) H 09/06/18 19:19 Chloride 110 mmol/L (98-107) H 09/06/18 19:19 Carbon Dioxide 23 mmol/L (21-32) 09/06/18 19:19 Anion Gap 7.0 (3-11) 09/06/18 19:19 BUN 62 mg/dl (7-18) H 09/06/18 19:19 Creatinine 1.67 mg/dl (0.6-1.4) H 09/06/18 19:19 Est Cr Clr Drug Dosing 50.6 ml/min 09/06/18 19:19 Est GFR ( Amer) 44.4 09/06/18 19:19 Est GFR (Non-Af Amer) 38.3 09/06/18 19:19 BUN/Creatinine Ratio 37.2 (10-20) H 09/06/18 19:19 Glucose 52 mg/dl (70-99) L* 09/06/18 19:19 POC Glucose 103 (70-99) H 09/07/18 00:40 Calcium 9.4 mg/dl (8.5-10.1) 09/06/18 19:19 Diagnostic Findings [place], [place] [phone] CT Scan Report Patient: KENNETH DELAROSA Date: 08/31/18 MR#: [id number]: [id number] [facility] Acct ID:[id number]: [address] Date: 1940[facility] Zip: [place] [id number] Age: 78Location: [place] Sex: M Room/Bed: Att Phy: Lindsay Hoffmann CRNPDiagnosis: NON HEALING WOUND RT LEG Lana Phy: Ronald Smith M.D.Service Date: 08/31/18 Fam Phy: Interpreting Phy: Sean Saeed MD Admit Phy: Ordering Phy: Hailey Mcneill D.O. cc: ~ RIGHT LOWER LEG CT CT DOSE: 633.53 mGy.cm HISTORY: NOn healing wound of the right lower leg TECHNIQUE: Multiaxial CT images of the right lower leg were performed and reformatted in the sagittal and coronal plane without the use of contrast. A dose lowering technique was utilized adhering to the principles of ALARA. COMPARISON: Right lower leg 07/26/2018. FINDINGS: No acute fracture or dislocation within the right tibia, fibula, or visualized bones of the foot. No cortical destruction to suggest osteomyelitis. The bones are slightly osteopenic. Diffuse skin thickening and subcutaneous edema within the right lower leg and foot. This most pronounced within the ankle and foot. No definite loculated fluid collections on this noncontrast study to suggest an abscess. Vascular calcifications are noted. Mild thickening of the distal Achilles tendon consistent with a tendinosis. This remains unchanged. There is also chronic tendinopathy of the distal peroneal tendons. Scattered punctate calcifications within the subcutaneous fat of the lower leg which may be vascular. Focal skin defect within the mid lateral lower leg which measures 8 mm. There are few adjacent punctate foci of subcutaneous gas at this location. These are likely related to the focal skin ulceration. No significant edema within the muscle compartments of the lower leg. IMPRESSION: 1. Redemonstration of the diffuse skin thickening and subcutaneous edema within the right lower leg and foot. 2. No evidence for osteomyelitis. 3. Focal skin defect within the mid lateral lower leg which measures 8 mm. There are few adjacent punctate foci of subcutaneous gas at this location. These are likely related to the focal skin ulceration. A gas-forming organism could also have a similar appearance. Therefore, clinical correlation recommended to assess for infection. Electronically signed by: Sean Saeed M.D. 08/31/2018 11:03 AM Dictated: 08/31/18 1058 Transcribed: 08/31/18 1058 Code Status & VTE Plan Code Status Full code VTE Prophylaxis Plan VTE Prophylaxis will be ordered: Yes _ (1) Chronic kidney disease Chronic kidney disease stage: unspecified stage Qualified Code(s): N18.9 - Chronic kidney disease, unspecified (2) CAD (coronary artery disease) Coronary Disease-Associated Artery/Lesion type: [place] artery [place] vs. transplanted heart: [place] heart Associated angina: without angina Qualified Code(s): I25.10 - Atherosclerotic heart disease of [place] coronary artery without angina pectoris (3) Hypertension Hypertension type: renovascular hypertension Qualified Code(s): I15.0 - Renovascular hypertension (4) Venous stasis ulcer Venous stasis ulcer site: calf Varicose vein presence: unspecified whether present Laterality: right Non-pressure ulcer stage: limited to breakdown of skin Qualified Code(s): I83.012 - Varicose veins of right lower extremity with ulcer of calf; L97.211 - Non-pressure chronic ulcer of right calf limited to breakdown of skin (5) Congestive heart failure Heart failure type: diastolic Heart failure chronicity: chronic Qualified Code(s): I50.32 - Chronic diastolic (congestive) heart failure (6) Diabetes Diabetes mellitus type: type 2 Diabetes mellitus manager terminal insulin use: with manager terminal use Diabetes mellitus complication status: without complication Diabetes mellitus complication detail: Diabetic retinopathy severity: Proliferative retinopathy type: Diabetes mellitus macular edema: Laterality : Chronic kidney disease stage: Qualified Code(s): E11.9 - Type 2 diabetes mellitus without complications; Z79.4 - [facility] (current) use of insulin (7) PE (pulmonary embolism) Pulmonary embolism type: other Chronicity: unspecified Acute cor pulmonale presence: without acute cor pulmonale Qualified Code(s): I26.99 - Other pulmonary embolism without acute cor pulmonale
[2018-09-07] MEDS ORDERED: NON-FORMULARY MEDICATION (Acetaminophen [Acetaminophen] 650 MG) PO PRN (00:10)
[2018-09-07] MEDS ORDERED: DEXTROSE 50% 50 ML SYRINGE IV PRN (00:10)
[2018-09-07] MEDS ORDERED: ALUMINUM/MAGNESIUM SUSP 30 ML UDC PO PRN (00:10)
[2018-09-07] MEDS ORDERED: GLUCOSE 40% GEL 15 GM TUBE PO PRN (00:10)
[2018-09-07] MEDS ORDERED: GLUCAGON FOR INJ 1 MG VIAL SQ PRN (00:10)
[2018-09-07] MEDS ORDERED: CARBOHYDRATES FOR HYPOGLYCEMIA PO PRN (00:10)
[2018-09-07] MEDS ORDERED: HYDROCODONE/ACETAMOPHEN 5/325MG TAB PO PRN (00:10)
[2018-09-07] MEDS ORDERED: MAGNESIUM HYDROXIDE SUSP 30 ML UDC PO PRN (00:10)
[2018-09-07] MEDS ORDERED: GLUCOSE 10 TABS/TUBE PO PRN (00:10)
[2018-09-07] MEDS: LEVOFLOXACIN/D5W 500 MG/100 ML BAG IV SCH (01:45)
[2018-09-07] MEDS: HYDROCODONE/ACETAMOPHEN 5/325MG TAB PO PRN (01:46)
[2018-09-07] MEDS ORDERED: ZOLPIDEM TARTRATE 5 MG TAB PO PRN (01:53)
[2018-09-07] MEDS ORDERED: ZOLPIDEM TARTRATE 5 MG TAB PO ONE (01:57)
[2018-09-07] MEDS: ACETAMINOPHEN 325 MG TAB PO PRN (04:10)
[2018-09-07] MEDS ORDERED: HYDROCODONE/ACETAMOPHEN 5/325MG TAB PO ONE (05:11)
[2018-09-07 06:05] LABS: Estimated Average Glucose 151 mg/dl
[2018-09-07] MEDS ORDERED: INFLUENZA VACCINE HIGH DOSE 65+ 0.5 ML SYR IM ONE (06:15)
[2018-09-07] MEDS ORDERED: INFLUENZA ADMINISTRATION CHARGE ONE (06:15)
[2018-09-07] MEDS: INSULIN ASPART 100 UNITS/ML 3 ML PEN SC SCH ×4 (08:17→20:28)
[2018-09-07] MEDS: BRIMONIDINE TARTRATE-P 0.15% 5 ML BTL OPR SCH (08:18)
[2018-09-07] MEDS: ASPIRIN 81 MG ECTAB PO SCH (08:20)
[2018-09-07] MEDS: ATORVASTATIN 40 MG TAB PO SCH (08:21)
[2018-09-07] MEDS: FERROUS SULFATE 325 MG TAB PO SCH (08:21)
[2018-09-07] MEDS: COLLAGENASE OINT 30 GM TUBE TOP SCH (08:21)
[2018-09-07] MEDS: METOPROLOL SUCC 50MG EXT REL TAB PO SCH (08:22)
[2018-09-07] MEDS ORDERED: BACITRACIN OINT 15 GM TUBE EXT SCH (09:00)
[2018-09-07] MEDS ORDERED: ALBUMIN 25% 50 ML with FUROSEMIDE 40 MG IV SCH (09:00)
[2018-09-07 10:16] LABS: BUN Creatinine Ratio 36.2 (10-20); Creatinine Clr Calc Pharmacy 54.9 ml/min; Est GFR (African American) 48.2; Est GFR (Non-African American) 41.6; Potassium 5.1 mmol/L (3.5-5.1)
--- NOTE | 2018-09-07 15:31 | Hospitalist Progress Note ---
Date of Service September 07, 2018 Assessment & Plan (1) Hyperkalemia: Potassium was 6.2 on outpatient laboratories, with repeat 6.0 on admission. Had skipped his home torsemide for 1 week per his PCP's office. Likely due to CKD. Improved on Lasix IV dosing. - Continue Lasix 40mg IV BID - Follow serial BMP and magnesium levels. (2) Chronic kidney disease: Baseline Cr is 1.5-1.6. Creatinine upon admission was 1.67. - Likely secondary to volume overload. - Follow serial laboratories with diuresis as noted. (3) Cellulitis of right lower extremity: Has been on Levaquin 500 mg orally in the outpatient setting per Dr. Mendez from infectious disease. Seen by wound care on 09/07. Comparing pictures, I believe his wounds are stable and even improved from 1 week ago. - Continue levofloxacin 500mg PO daily (4) CAD (coronary artery disease): - Continue aspirin 81 mg daily, hydralazine 50 mg p.o. 4 times daily, and metoprolol succinate 50 mg p.o. daily. - For now hold losartan 100 mg daily and torsemide 20 mg every morning. (5) Hypertension: BP in high-normal range (as low as 120/70 up to 170/90). - As above. (6) Iron deficiency anemia: Continue ferrous sulfate supplement. (7) Chronic venous insufficiency: Long-standing issue with multi-prong approach to improvement. - Lasix as above - Conservative care with elevation and pressure dressing as able (8) Hypoglycemia: History of diabetes with A1c of 6.9%. Initially had hypoglycemia. - Hold metformin and dulaglutide. - Decreased glyburide twice daily - Accu-checks before meals and at bedtime with NovoLog coverage per scale. (9) Congestive heart failure: As noted above. Will resume outpatient dosing of torsemide after improved fluid balance obtained with albumin and Lasix IV. (10) Diabetes: As noted above. (11) PE (pulmonary embolism): History of PE. Home warfarin 5mg PO daily and 7.5mg 2 times per week. - Continue warfarin - Trend INR Subjective 78yo M w/ hx of CKD, chronic lymphedema who presents with hyperkalemia. Patient reports that he is overall feeling well. No major concerns. No palpitations or other issues. Reports no fevers/chills, chest pain, shortness of breath, abdominal pain, nausea, or vomiting. Physical Exam 2 Vital Signs (Past 24 Hours): Last Vital Signs Temp 36.5 C 09/07/18 11:43 Pulse 70 09/07/18 11:43 Resp 19 09/07/18 11:43 BP 118/74 09/07/18 11:43 Pulse Ox 94 09/07/18 11:43 Constitutional: WD/WN, vitals as above + morbidly obese Eyes: EOM intact bilaterally; no conjunctival abnormality ENMT: external ear and nose normal, oropharynx normal Neck: trachea midline, no thyromegaly normal visual inspection Respiratory: normal respiratory effort, lungs clear to auscultation no respiratory distress Cardiovascular: RRR, no murmur, no edema Gastrointestinal (Abdomen): Inspection/Auscultation: abdomen normal to inspection; abdomen not distended Musculoskeletal: no cyanosis or clubbing, extremities motor strength 5/5 Skin: + rash (Long-standing lymphedema) Neurologic: moves all extremities and awake Psychiatric: Orientation: alert, oriented to person and cooperative _ (1) Chronic kidney disease Chronic kidney disease stage: unspecified stage Qualified Code(s): N18.9 - Chronic kidney disease, unspecified (2) CAD (coronary artery disease) Coronary Disease-Associated Artery/Lesion type: [place] artery [place] vs. transplanted heart: [place] heart Associated angina: without angina Qualified Code(s): I25.10 - Atherosclerotic heart disease of [place] coronary artery without angina pectoris (3) Hypertension Hypertension type: renovascular hypertension Qualified Code(s): I15.0 - Renovascular hypertension (4) Congestive heart failure Heart failure type: diastolic Heart failure chronicity: chronic Qualified Code(s): I50.32 - Chronic diastolic (congestive) heart failure (5) Diabetes Diabetes mellitus type: type 2 Diabetes mellitus nursing home insulin use: with nursing home use Diabetes mellitus complication status: without complication Diabetes mellitus complication detail: Diabetic retinopathy severity: Proliferative retinopathy type: Diabetes mellitus macular edema: Laterality : Chronic kidney disease stage: Qualified Code(s): E11.9 - Type 2 diabetes mellitus without complications; Z79.4 - [facility] (current) use of insulin (6) PE (pulmonary embolism) Pulmonary embolism type: other Chronicity: unspecified Acute cor pulmonale presence: without acute cor pulmonale Qualified Code(s): I26.99 - Other pulmonary embolism without acute cor pulmonale
[2018-09-07] MEDS ORDERED: WARFARIN SOD 1 MG TAB PO SCH (16:00)
[2018-09-07] MEDS ORDERED: FUROSEMIDE 40 MG in SYRINGE 0 ML IV SCH (17:00)
[2018-09-07] MEDS: GABAPENTIN 100 MG CAP PO SCH (20:24)
[2018-09-07] MEDS ORDERED: LATANOPROST 0.005% OP SOLN 2.5 ML BTL OP SCH (21:00)
[2018-09-07] MEDS: GLYNASE PO SCH (21:57)
[2018-09-08] MEDS: LEVOFLOXACIN/D5W 500 MG/100 ML BAG IV SCH (01:04)
[2018-09-08] MEDS: ACETAMINOPHEN 325 MG TAB PO PRN (01:07)
[2018-09-08 07:01] LABS: Hematocrit (blood only) 29.6 % (42-52); Hemoglobin 9.2 g/dL (14.0-18.0); Mean Corpuscular Hgb Conc 31.1 g/dL (32-36); Mean Corpuscular Volume 91.4 fL (80-100); Mean Platelet Volume 9.1 fL (7.4-10.4); Platelet Count 201 K/uL (130-400); RDW Standard Deviation 50.1 fL (36.4-46.3); Red Blood Count 3.24 M/uL (4.7-6.1); White Blood Count 5.52 K/uL (4.8-10.8)
[2018-09-08 07:10] LABS: INR 1.2 (0.9-1.1); Prothrombin Time 12.2 Seconds (9.0-12.0)
[2018-09-08 07:33] LABS: BUN Creatinine Ratio 36.1 (10-20); Calcium 9.1 mg/dl (8.5-10.1); Creatinine Clr Calc Pharmacy 45.7 ml/min; Est GFR (Non-African American) 33.7; Potassium 4.9 mmol/L (3.5-5.1)
[2018-09-08] MEDS: INSULIN ASPART 100 UNITS/ML 3 ML PEN SC SCH ×2 (08:37→12:13)
[2018-09-08] MEDS: ASPIRIN 81 MG ECTAB PO SCH (08:38)
[2018-09-08] MEDS: BRIMONIDINE TARTRATE-P 0.15% 5 ML BTL OPR SCH (08:38)
[2018-09-08] MEDS: ATORVASTATIN 40 MG TAB PO SCH (08:39)
[2018-09-08] MEDS: FERROUS SULFATE 325 MG TAB PO SCH (08:39)
[2018-09-08] MEDS: METOPROLOL SUCC 50MG EXT REL TAB PO SCH (08:41)
[2018-09-08] MEDS: COLLAGENASE OINT 30 GM TUBE TOP SCH (08:41)
[2018-09-08] MEDS: GLYNASE PO SCH (08:41)
[2018-09-08] MEDS: GABAPENTIN 100 MG CAP PO SCH (10:18)
[2018-09-08] MEDS ORDERED: WARFARIN SOD 5 MG TAB PO SCH (16:00)
--- NOTE | 2018-09-08 16:04 | Discharge Summary ---
Date of Service September 08, 2018 Admission HPI Per Admitting Provider The patient is a 78-year-old male who was seen in his PCPs office earlier today for routine office visit, underwent routine laboratories, which were noted to be abnormal later on in the day, and he was notified by his PCPs office to come to the emergency department for assessment. He reports that he did have his losartan and torsemide stopped 1 week ago for unknown reasons. He does note increasing lower extremity edema since that time. He follows with the wound care clinic for a right lower extremity cellulitis, for which he is on Santyl, and for which he is prescribed levofloxacin by infectious disease Dr. Mendez. He does take Cowdrey periodically for lower extremity pain. Principal Diagnosis Hyperkalemia Discharge Exam Constitutional WD/WN, vitals as above + morbidly obese Eyes EOM intact bilaterally; no conjunctival abnormality ENMT external ear and nose normal, oropharynx normal Neck trachea midline, no thyromegaly normal visual inspection Respiratory normal respiratory effort, lungs clear to auscultation no respiratory distress Cardiovascular RRR, no murmur, no edema Gastrointestinal (Abdomen) Inspection/Auscultation: abdomen normal to inspection; abdomen not distended Musculoskeletal no cyanosis or clubbing, extremities motor strength 5/5 Skin + rash (Long-standing lymphedema) Neurologic moves all extremities and awake Psychiatric Orientation: alert, oriented to person and cooperative Discharge Data Allergies Allergy/AdvReac Type Severity Reaction Status Date / Time mushroom AdvReac Intermediate diarrhea Verified 09/06/18 14:49 Consultations 09/06/18 20:05 ED Decision to Admit Stat 09/07/18 00:10 Consult Case Management - Discharge Planning Routine Hospital Course (1) Hyperkalemia: Potassium was 6.2 on outpatient laboratories, with repeat 6.0 on admission. Had skipped his home torsemide for 1 week per his PCP's office. Likely due to CKD. Improved on Lasix IV dosing. - Returned to 4.9 on discharge - Will take his torsemide every other day to help reduce chance of kidney injury , but also keep potassium lower - Hold losartan until seen by PCP and BMP is rechecked. (2) Chronic kidney disease: Baseline Cr is 1.5-1.6. Creatinine upon admission was 1.67. - Improved with diuresis, but was up to 1.8 on discharge. - As above, holding losartan and using torsemide every other day to minimize risk of kidney injury. (3) Cellulitis of right lower extremity: Has been on Levaquin 500 mg orally in the outpatient setting per Dr. Mendez from infectious disease. Seen by wound care on 09/07. Comparing pictures, I believe his wounds are stable and even improved from 1 week ago. - Continued levofloxacin 500mg PO daily (4) CAD (coronary artery disease): - Continue aspirin 81 mg daily, hydralazine 50 mg p.o. 4 times daily, and metoprolol succinate 50 mg p.o. daily. - Held losartan 100 mg daily (5) Hypertension: BP in high-normal range (as low as 120/70 up to 170/90). - Remained stable off of losartan (6) Iron deficiency anemia: Continue ferrous sulfate supplement. (7) Chronic venous insufficiency: Long-standing issue with multi-prong approach to improvement. - Lasix as above - Conservative care with elevation and pressure dressing as able - Will follow up with Wound Clinic on (8) Hypoglycemia: History of diabetes with A1c of 6.9%. Initially had hypoglycemia. - Held metformin and dulaglutide. - On insulin while inpatient; return to home meds on discharge. (9) Congestive heart failure: As noted above. Will resume outpatient dosing of torsemide after improved fluid balance obtained with albumin and Lasix IV. (10) Diabetes: As noted above. (11) PE (pulmonary embolism): History of PE. Home warfarin 5mg PO daily and 7.5mg 2 times per week. - Continued warfarin - While admitted, his INR was low, but it was unclear if he'd held his warfarin. No change on discharge, but will need close Anticoagulation follow up. Total Time Total Time Spent Total Time Spent (In Minutes): 40 Total Time Includes: Examination of the Patient, Discharge Planning and Medication Reconciliation Discharge Plan Discharge Items Patient Disposition: Home - Home Health Services Reason For Visit: SOB,HYPERKALEMIA,CELLULITIS OF LE Discharge Diagnosis: Hyperkalemia (high potassium) Discharge Goals: Improve disease control and Improve function Activity: Resume your previous activity Non-emergency contact: Primary Care Provider Call non-emergency contact if: your symptoms worsen, your pain is unusual for you and your temperature is above 100.5 Follow-up/Referrals: Ronald Smith III, MD [Primary Care Provider] - (Please see your PCP in 1 week for a check of your kidney and potassium function.) Lindsay Hoffmann CRNP [Nurse Practitioner] - (Please keep your Wound Center appointment.) Diet: Carb Consistent or DM2 and Low Sodium (2gm) Addtl Provider Instructions: Mr. Muhammad, You were admitted for high potassium that can cause changes in your heart rhythm. As such, you were asked to come in and get medication to lower the potassium. We gave you some IV Lasix which helps you pass the potassium through your urine. Your potassium came down, and your kidney function was near its baseline. Your PCP had you hold the torsemide for the last week, but we decided that taking it every other day may strike a balance between keeping your leg swelling and potassium in line without causing kidney issues. We skipped the dose today, so please take your torsemide every other day starting tomorrow (September 09). Please stop the losartan as it can cause high potassium. When you see the Wound Center or your PCP in a week, please have them check your kidney function and potassium. Your leg looked stable from prior Wound Care visits when I compared photos, so please continue your levofloxacin that Dr. Mendez gave you and follow up with the Wound Center as normally. Also, please see your PCP or Anticoagulation team about your warfarin. Your INR was low here, meaning your warfarin dosing is not at the right level. Finally, I prescribed gabapentin for your leg pain. Your description was of a "nerve" pain or neuropathic pain. We tried 100mg the night before discharge, and it helped, but only for a limited time. Please take 200 mg of gabapentin before bedtime to help reduce the pain overnight while your feet are elevated. You can take 100mg one time during the day as you need to to help with the pain. Be careful about driving until you know if the gabapentin makes you drowsy or not. Please come back to the hospital with any fevers, chills, worsening drainage from the leg wound, or other concerning symptoms. Prescriptions: New gabapentin 100 mg capsule 200 mg PO HS Qty: 60 RF: 0 gabapentin 100 mg capsule 100 mg PO DAILY PRN (Reason: For leg pain) Qty: 30 RF: 0 Continue levofloxacin 500 mg tablet 500 mg PO DAILY Qty: 30 RF: 1 collagenase clostridium histo. [Santyl] 250 unit/gram ointment 1 applic TOP DAILY 14 Days Qty: 30 RF: 2 brimonidine [Alphagan P] 0.1 % drops 2 drp OPR DAILY RF: 0 hydrocodone-acetaminophen [Cowdrey] 5-325 mg Tablet 1 tab PO Q8 PRN (Reason: pain) Qty: 15 RF: 0 hydralazine 25 mg Tablet 50 mg PO QID Qty: 0 RF: 0 latanoprost 0.005 % Drops 1 drp OPHTHALMIC (EYE) PM RF: 0 atorvastatin 40 mg Tablet 40 mg PO DAILY RF: 0 glyburide micronized 6 mg Tablet 9 mg PO DAILY RF: 0 glyburide micronized 6 mg Tablet 6 mg PO QPM RF: 0 metoprolol succinate 50 mg Tablet Extended Release 24 Hr 50 mg PO DAILY RF: 0 aspirin [Aspirin Low Dose] 81 mg Tablet,Delayed Release (Dr/Ec) 81 mg PO DAILY RF: 0 cyanocobalamin (vitamin B-12) 1,000 mcg/mL Solution 1,000 mcg SUBCUT MONTHLY RF: 0 ferrous sulfate [iron] 325 mg (65 mg iron) Tablet 325 mg PO DAILY RF: 0 metformin 1,000 mg Tablet 1,000 mg PO DAILY RF: 0 nystatin 100,000 unit/gram cream 1 applic Topical DAILY PRN (Reason: BREAKOUTS) RF: 0 zolpidem 5 mg Tablet 5 mg PO HS PRN (Reason: Insomnia) RF: 0 acetaminophen 325 mg Capsule 650 mg PO Q4H PRN (Reason: Pain) RF: 0 dulaglutide 0.75 mg/0.5 mL Pen Injector 1 dose subcut WK RF: 0 oxycodone-acetaminophen [Percocet] 5-325 mg tablet 0.5 - 1 tab PO UD PRN (Reason: Pain) RF: 0 Changed torsemide 20 mg Tablet 20 mg PO Q OTHER DAY Qty: 30 RF: 0 warfarin [Coumadin] 1 mg tablet 5 mg PO DAILY Qty: 0 RF: 0 Discontinued bacitracin 500 unit/gram Ointment 1 applic EXT BID Qty: 28 RF: 0 losartan 100 mg Tablet 100 mg PO UD RF: 0 Visit Report Forms: My [facility] Stand-Alone Forms: [facility] Discharge Orders: Discharge Order (Routine); Ordered 09/08/18 Ordered By: Estrada Denton Admission Data Admit Date/Time: 09/06/18 22:41 Attending Provider: Estrada Denton Admit Provider: Christophe Hernandez Primary Care Provider: Ronald Smith III Other Providers: Estrada Denton Service: Telemetry Other Interventions: Discharge Summary Assessment (RN) Last Done: 09/08/18 11:40 DC Date/Time DO NOT enter until pt leaves facility: 09/08/18 14:11
== END 2018-09-08 14:11 | disposition home health service (06) | DRG 641 ==
LOC: ED 18:45 → SUATTDRO 22:41 → 2S 22:41